=== PATIENT | male | born 1980 ===

== ENCOUNTER 2022-12-13 18:31 | Inpatient (IN) | payer MEDICARE, MEDICAID, OTHER, SELFPAY ==
[2022-12-13 19:34] VITALS: BP 121/70; PULSE 102; RESP 22; TEMP 36.5; O2SAT 96
--- NOTE | 2022-12-13 19:38 | PC.ADMIT ---
Pt is a 42 y/o bulgarian speaking male admitted from [facility] at 1845 on a CV.Pts WBC was elevated and NA low, MD TO completed and pt approved for admission. Pt was cooperative with skin check, skin intact. Pt diagnosed with Schizoaffective d/o. Tox screen only positive for THC. VSS. Pts mood was tense, thought process was disorganized, speech tangential. Pt went to room to use the BR and didn't speak to T/W anymore. Next shift to complete admission.
[2022-12-13 22:32] LABS: Glucose, Whole Blood 261 mg/dL (60-115)
[2022-12-13] MEDS: Prazosin HCL 1 MG CAPSULE PO (23:00)
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
[2022-12-14 09:48] VITALS: BP 139/71; PULSE 90; RESP 16; TEMP 36.8; O2SAT 97
[2022-12-14] MEDS: SITagliptin Phosphate 25 MG TABLET PO (10:00)
[2022-12-14] MEDS: Atorvastatin Calcium 40 MG TABLET PO (10:00)
[2022-12-14] MEDS: Lithium Carbonate ER 450 MG TABLET.ER PO (10:01)
[2022-12-14] MEDS: lisinopriL 10 MG TABLET PO (10:01)
[2022-12-14] MEDS: Benztropine Mesylate 1 MG TABLET PO (10:01)
[2022-12-14 10:36] LABS: Lithium 0.53 mmol/L (0.60-1.20)
[2022-12-14 10:43] LABS: Estimated Average Glucose 157 mg/dL; Hemoglobin A1c % 7.1 % (<6.0)
[2022-12-14 10:57] LABS: Alanine Aminotransferase 18 U/L (0-40); Albumin Level 4.6 g/dL (3.5-5.0); Alkaline Phosphatase 86 U/L (39-117); Anion Gap 14 (12-20); Aspartate Amino Transferase 12 U/L (5-37); Bilirubin Total 0.5 mg/dL (0.0-1.0); Blood Urea Nitrogen 13 mg/dL (9-16); Calcium 9.4 mg/dL (8.4-10.2); Carbon Dioxide 22 mmol/L (22-29); Chloride 104 mmol/L (96-108); Cholesterol 146 mg/dL (<200); Estimated Glomerular Filt Rate > 60; Glucose Fasting 263 mg/dL (60-99); HDL Cholesterol 32 mg/dL (>40); Potassium 4.6 mmol/L (3.3-5.1); Sodium 135 mmol/L (135-145); Total Protein 7.1 g/dL (6.5-8.0); Triglycerides 423 mg/dL (<150)
[2022-12-14 11:14] LABS: Free T4 (Free Thyroxine) 1.05 ng/dL (0.71-1.85); Thyroid Stimulating Hormone 1.23 uIU/mL (0.32-4.0)
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
[2022-12-14 11:17] LABS: Folate 9.9 ng/mL (> or = 4.0); Vitamin B12 546 pg/mL (200-900)
[2022-12-14 12:46] LABS: Glucose, Whole Blood 175 mg/dL (60-115)
[2022-12-14] MEDS: chlorproMAZINE HCl 25 MG TABLET 50 MG PO ×2 (16:54→21:44)
[2022-12-14 20:15] VITALS: BP 124/85; PULSE 100; RESP 18; TEMP 37; O2SAT 97
[2022-12-14] MEDS: Lithium Carbonate ER 450 MG TABLET.ER 900 MG PO (21:44)
[2022-12-14] MEDS: LORazepam 1 MG TABLET PO (21:44)
[2022-12-14] MEDS: Prazosin HCL 1 MG CAPSULE PO (21:45)
[2022-12-15 08:00] VITALS: BP 146/78; PULSE 83; RESP 18; TEMP 36.2; O2SAT 98
[2022-12-15] MEDS: Benztropine Mesylate 1 MG TABLET PO (08:50)
[2022-12-15] MEDS: Lithium Carbonate ER 300 MG TABLET.ER 600 MG PO (08:50)
[2022-12-15] MEDS: lisinopriL 10 MG TABLET PO (08:50)
[2022-12-15] MEDS: Atorvastatin Calcium 40 MG TABLET PO (08:51)
[2022-12-15] MEDS: chlorproMAZINE HCl 25 MG TABLET 50 MG PO ×3 (08:51→21:13)
[2022-12-15] MEDS: SITagliptin Phosphate 25 MG TABLET PO (08:51)
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
[2022-12-15 10:44] LABS: Glucose, Whole Blood 302 mg/dL (60-115)
[2022-12-15] MEDS: Lithium Carbonate ER 450 MG TABLET.ER 900 MG PO (21:13)
[2022-12-16] MEDS: Milk of Magnesia 30 ML ORAL.SUSP PO (02:08)
[2022-12-16] MEDS: LORazepam 1 MG TABLET PO ×2 (02:08→22:30)
[2022-12-16 08:33] LABS: Glucose, Whole Blood 223 mg/dL (60-115)
[2022-12-16] MEDS: Lithium Carbonate ER 300 MG TABLET.ER 600 MG PO (08:41)
[2022-12-16] MEDS: SITagliptin Phosphate 25 MG TABLET PO (08:41)
[2022-12-16] MEDS: Atorvastatin Calcium 40 MG TABLET PO (08:41)
[2022-12-16] MEDS: chlorproMAZINE HCl 25 MG TABLET 50 MG PO (08:41)
[2022-12-16] MEDS: lisinopriL 10 MG TABLET PO (08:42)
[2022-12-16] MEDS: Benztropine Mesylate 1 MG TABLET PO (08:42)
--- NOTE | 2022-12-16 08:55 | P.PNPSI_ITS ---
Subjective Subjective Date of Service: 12/16/22 Reason For Visit: Schizoaffective D/O Bipolar Subjective Notes: Conditional Voluntary Interim History: Reviewed in team and . Pt continues to presents with rapid and pressured speech. It is difficult to understand or follow along with patients speech and thought process. He presents disorganized, tangential, delusional and incoherent; pt observed responding to internal stimuli; when asked who he is talking to pt stated it was his , Gavino. He reports his , Gavino, is now here and Gisell-I has gone, since she is a part of [employer] . Patient reports he had a premonition that I was going to today but I'm glad I haven't . Denies SI/HI. Medication Compliance: Yes Side effects from medications: No Attending Groups: Intermittent Review of Systems Review of Systems Patient has no acute medical complaints at this time Yes all other systems are reviewed and are negative Constitutional: Reports as per HPI Eyes: Reports as per HPI Reports as per HPI Cardiovascular: Reports as per HPI Respiratory: Reports as per HPI Gastrointestinal: Reports as per HPI Genitourinary: Reports as per HPI Musculoskeletal: Reports as per HPI Skin/Breast: Reports as per HPI Reports as per HPI Psychiatric: Reports as per HPI Endocrine: Reports as per HPI Hematologic/Lymphatic: Reports as per HPI Allergic/Immunologic: Reports as per HPI Mental Status Exam Mental Status Exam Narrative: Pt is alert and oriented; behavior is cooperative, calm; dressed in casual attire with unkempt hair and poor hygiene; mood is described as fine ; eye contact appropriate; Speech is rapid and pressured; no psychomotor agitation/retardation present; thought process is racing; Thought content is disorganized, tangential, incoherent; pt presents with delusions that he is to 4 different women and 2 men; has cameras in his occipital nerve; denies SI/HI. Reacting to visual/auditory hallucinations. Patients insight and judgment are poor. Diagnostics Labs 12/14/22 09:48 Labs: Laboratory Results - last 48 hr 12/14/22 12/14/22 12/15/22 09:48 12:41 10:40 Sodium 135 Potassium 4.6 Chloride 104 Carbon Dioxide 22 Anion Gap 14 BUN 13 Creatinine 0.80 Estim Creat Clear Calc TNP Estimated GFR > 60 POC Glucose 175 H 302 H Fasting Glucose 263 H Estimat Average Glucose 157 Hemoglobin A1c % 7.1 H Calcium 9.4 Total Bilirubin 0.5 AST 12 ALT 18 Alkaline Phosphatase 86 Total Protein 7.1 Albumin 4.6 Triglycerides 423 H Cholesterol 146 LDL Cholesterol, Calc TNP HDL Cholesterol 32 L Vitamin B12 546 Folate 9.9 TSH 1.23 Free T4 1.05 Valinda 0.53 L 12/16/22 08:16 Sodium Potassium Chloride Carbon Dioxide Anion Gap BUN Creatinine Estim Creat Clear Calc Estimated GFR POC Glucose 223 H Fasting Glucose Estimat Average Glucose Hemoglobin A1c % Calcium Total Bilirubin AST ALT Alkaline Phosphatase Total Protein Albumin Triglycerides Cholesterol LDL Cholesterol, Calc HDL Cholesterol Vitamin B12 Folate TSH Free T4 Valinda Medications Medications Current Medications Acetaminophen (Acetaminophen 325 Mg Tablet) 650 mg PO Q6H PRN PRN Reason: Headache/Pain Mild Scale (1-3) Al Hydroxide/Mg Hydroxide (Magnesium Hydrox/Alum Hydrox 30 Ml Oral.Susp) 30 ml PO Q6H PRN PRN Reason: Heartburn/Nausea Atorvastatin Calcium (Atorvastatin Calcium 40 Mg Tablet) 40 mg PO DAILY [facility] Last Admin: 12/16/22 08:41 Dose: 40 mg Benztropine Mesylate (Benztropine Mesylate 1 Mg Tablet) 1 mg PO DAILY [facility] Last Admin: 12/16/22 08:42 Dose: 1 mg Chlorpromazine HCl (Chlorpromazine Hcl 25 Mg Tablet) 50 mg PO TID [facility] Last Admin: 12/16/22 08:41 Dose: 50 mg Lisinopril (Lisinopril 10 Mg Tablet) 10 mg PO DAILY [facility]; Protocol Last Admin: 12/16/22 08:42 Dose: 10 mg Valinda Carbonate (Valinda Carbonate Er 300 Mg Tablet.Er) 600 mg PO DAILY [facility] Last Admin: 12/16/22 08:41 Dose: 600 mg Valinda Carbonate (Valinda Carbonate Er 450 Mg Tablet.Er) 900 mg PO BEDTIME [facility] Last Admin: 12/15/22 21:13 Dose: 900 mg Lorazepam (Lorazepam 1 Mg Tablet) 1 mg PO DAILY PRN PRN Reason: anxiety/restlessness Last Admin: 12/16/22 02:08 Dose: 1 mg Lorazepam (Lorazepam 1 Mg Tablet) 1 mg PO BEDTIME [facility] Last Admin: 12/15/22 21:15 Dose: Not Given Magnesium Hydroxide (Milk Of Magnesia 30 Ml Oral.Susp) 30 ml PO DAILY PRN PRN Reason: Constipation Last Admin: 12/16/22 02:08 Dose: 30 ml Nicotine Polacrilex (Nicotine Polacrilex 2 Mg Gum) 4 mg BUCCAL Q2H PRN PRN Reason: Nicotine Cravings Olanzapine (Olanzapine 5 Mg Tablet) 5 mg PO BID PRN PRN Reason: Psychosis Prazosin HCl (Prazosin Hcl 1 Mg Capsule) 1 mg PO BEDTIME [facility]; Protocol Last Admin: 12/14/22 21:45 Dose: 1 mg Sitagliptin Phosphate (Sitagliptin Phosphate 25 Mg Tablet) 25 mg PO DAILY [facility] Last Admin: 12/16/22 08:41 Dose: 25 mg Trazodone HCl (Trazodone Hcl 50 Mg Tablet) 50 mg PO BEDTIME MRX1 PRN PRN Reason: Insomnia Allergies Allergies Allergy/AdvReac Type Severity Reaction Status Date / Time haloperidol [From Haldol] AdvReac Severe Irritable Verified 12/13/22 21:04 Assessment & Plan Assessment & Plan (1) Schizoaffective disorder: Status: Acute Code(s): F25.9 - Schizoaffective disorder, unspecified Plan Patient is a 42 year old male who self presented to [facility] d/t stating, his girlfriend wanting him to be evaluated , girlfriend does not physically exist; rather a perception of his reality. Per crisis report, Pt exhibiting acute psychotic behavior, reacting to visual stimuli. Pt accused clinician of sitting on his girlfriend during evaluation. Plan: 15 minute safety checks Continue home medications Obtain collateral Zyprexa 5mg PO BID PRN psychosis Ativan 1mg PO bedtime Ativan 1mg PO daily prn anxiety 12/15: Pt continues to presents with rapid and pressured speech. It is difficult to understand or follow along with patients speech and thought process. He presents disorganized, tangential, delusional and incoherent; pt stated, my is waiting for me in my room while I meet with you ; starting to name all of his wives and husbands names, reports he plans on possibly having a baby with one of his husbands. Patient asked to retract 3 day notice because he feel we are skilled to handle ill people . Continue current tx plan. Labs to be drawn on Monday12/19/22. 12/16: pt observed responding to internal stimuli; when asked who he is talking to pt stated it was his , Ryn. He reports his , Ryn, is now here and Gisell-I has gone, since she is a part of [employer] . Patient reports he had a premonition that I was going to today but I'm glad I haven't . Denies SI/HI. Increased Thorazine to 100mg PO 0900,1700 and 200mg PO bedtime; pt aware. Patient educated on: diagnosis and medication risk/benefits Informed Consent: understands and further education needed Reason for continued inpatient stay Substantial Risk for: med/psych decompensation Time Spent With Patient Time: Total time managing care of this patient today _30___ minutes.
[2022-12-16 09:00] VITALS: BP 134/78; PULSE 91; RESP 18; TEMP 36.8; O2SAT 97
[2022-12-16] MEDS: fluPHENAZine decanoate 25 MG/ML 5 ML VIAL 37.5 MG IM (16:52)
[2022-12-16] MEDS: metFORMIN HCl 1,000 MG TABLET 1000 MG PO (17:01)
[2022-12-16] MEDS: chlorproMAZINE HCl 100 MG TABLET PO (17:01)
[2022-12-16] MEDS: chlorproMAZINE HCl 100 MG TABLET 200 MG PO (22:31)
[2022-12-16] MEDS: Lithium Carbonate ER 450 MG TABLET.ER 900 MG PO (22:31)
[2022-12-16] MEDS: Prazosin HCL 1 MG CAPSULE PO (22:31)
[2022-12-17 07:50] VITALS: BP 133/80; PULSE 102; RESP 18; TEMP 36.4; O2SAT 97
[2022-12-17] MEDS: SITagliptin Phosphate 25 MG TABLET PO (07:57)
[2022-12-17] MEDS: Atorvastatin Calcium 40 MG TABLET PO (07:57)
[2022-12-17] MEDS: Lithium Carbonate ER 300 MG TABLET.ER 600 MG PO (07:57)
[2022-12-17] MEDS: lisinopriL 10 MG TABLET PO (07:57)
[2022-12-17] MEDS: Benztropine Mesylate 1 MG TABLET PO (07:58)
[2022-12-17] MEDS: chlorproMAZINE HCl 100 MG TABLET PO (07:58)
[2022-12-17] MEDS: metFORMIN HCl 1,000 MG TABLET 1000 MG PO ×2 (07:58→17:02)
[2022-12-17] MEDS: glipiZIDE 10 MG TABLET PO (07:58)
[2022-12-17 08:36] LABS: Glucose, Whole Blood 266 mg/dL (60-115)
[2022-12-17] MEDS: LORazepam 1 MG TABLET PO ×2 (11:19→14:06)
--- NOTE | 2022-12-17 13:27 | PC.NURSE ---
Pt nonsensical, restless, intrusive with roommate, running/speed walking in the hallway, in various stages of disrobing in room with roommate present. Given ativan 1 MG PO PRN (see MAR), with some effect. Discussed pt's presentation with Dr. Eaton and anmol COOPER. No private rooms available at this time, and was temporally moved to the anteroom until a private room is available. Pt was accepting of room change, and assisted staff in moving his belongings without issue. Placed on 5 minute checks ULB due to ligature risk on bed. Pt educated on and acknowledged importance of shutting door to the hallway when exiting room. Will continue to monitor for safety.
--- NOTE | 2022-12-17 13:42 | PC.NURSE ---
Pt nonsensical, restless, intrusive with roommate, running/speed walking in the hallway, in various stages of disrobing in room with roommate present. Given ativan 1 MG PO PRN (see MAR), with some effect. Discussed pt's presentation with Dr. Eaton and chargemaster analyst. No private rooms available at this time, and was temporarily moved to the anteroom until a private room is available. Pt was accepting of room change, and assisted staff in moving his belongings without issue. Placed on 5 minute checks ULB due to ligature risk on bed. Pt educated on and acknowledged importance of shutting door to the hallway when exiting room. Will continue to monitor for safety.
[2022-12-17] MEDS: chlorproMAZINE HCl 100 MG TABLET 200 MG PO ×2 (14:07→20:51)
--- NOTE | 2022-12-17 15:33 | P.PNPSI_ITS ---
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 During that admission he had changed his name legally to Rfa Machado. From 07/27/2018 discharge evaluation: - HPI: I'm constantly under attack for my beliefs and values . Reports that he called an ambulance, felt he couldn't drive in the snow. Describes himself as frantic and driving from place to place. Reports that he has been sleeping poorly. Says he was talking to the ghost in the ceiling . States that the ghost was performing surgery on his occipital lobe. Because of this he has better neuro-plasticity Says that he founded a country, called [employer]. Expressing multiple delusions about his .... was on thorazine, tegretol and lithium pre admission... lived in [facility] course and discharge: He was floridly psychotic and often non compliant with medications. There were three episodes of needing restraint due to aggressive behavior. He was intrusive and often disrobing in the hallway. He was placed on 1:1 observation due to these behaviors. A petition for commitment was filed and a hearing was held. The commitment and [place] order were allowed. His medication was changed to a combination of olanzapine and haloperidol. Medill and tegretol were discontinued and he was started on depakote. He had additional medication added for anxiety and to promote sleep including valium.. He continued to be awake much of the night. Over the next several days he did become somewhat calmer and was having more sleep time though still not sleeping adequately. He was less irritable though still displaying psychotic behavior including delusional and disorganized thinking. He was interacting more appropriately with staff and peers and hence 1:1 observation was removed during the day time and continued at night. 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 Patient eventually responded to lithium, Valium, prazosin, Abilify, Haldol and Zyprexa. Abilify maintaina started on 07/27/2018, oral Abilify will discontinue on 08/01/2018 and next dose of Abilify Maintena is 08/26/2018. Thought process became normal. No evidence of psychosis. Able to engage well attend to ADLs. Family support also present. Liaised with [facility] 3 team who will provide discharge follow-up. Eventually Haldol and Zyprexa can be tapered to monotherapy. Valium should also be tapered gradually. Was sleeping throughout the night ? Discussed discharge planning on 07/26/2018- will go home with family (Thursday 07/27), stay with the for the weekend, then go to apartment Monday with PA[facility] team. Discharge Examination: Alert, coherent and pleasant. No psychosis. Affect euthymic. No SI or HI. Good insight. Discharge meds included abilify maintenna 400mg, valium 10mg bedtime, haldol 5mg am and 10mg hs, lithium 600mg bid and prazosin 2mg hs. Today: Remembered teletypewriter operator from hospitalization at [facility] in 2019. Presents as pressured, intrusive, floridly psychotic, some irritability. Has been taking medications including Prolixin Decanoate, olanzapine and Thorazine. Was speaking about changing his name to evade police. Reported [address] in himself for tobacco addiction. Still living in [place] in an apartment nearby his family. Reports that his and family are invisible. I did discuss current medication regimen and increasing Thorazine and Ativan throughout today, which he was agreeable to. Was aware and in agreement with teletypewriter operator reviewing records from his admission at [facility]. Medication Compliance: Yes Side effects from medications: No Attending Groups: No Review of Systems Acute medical concerns: No Review of Systems Review of Systems Unremarkable Mental Status Exam Mental Status Exam Narrative: pleasant. Casually dressed. Self-care is limited. Pressured speech and intrusive. Denies feeling depressed. No SI or HI. Multiple delusions that are bizarre in nature. Insight and judgment does appear limited Diagnostics Vital Signs (24Hr): Vital Signs - 24 hr 12/17/22 07:50 Temperature 97.5 F Pulse Rate 102 H Respiratory Rate 18 Blood Pressure 133/80 Pulse Oximetry 97 Oxygen Delivery Method Room Air Labs 12/14/22 09:48 Labs: Laboratory Results - last 48 hr 12/16/22 12/17/22 08:16 08:18 POC Glucose 223 H 266 H Medications Medications Current Medications Acetaminophen (Acetaminophen 325 Mg Tablet) 650 mg PO Q6H PRN PRN Reason: Headache/Pain Mild Scale (1-3) Al Hydroxide/Mg Hydroxide (Magnesium Hydrox/Alum Hydrox 30 Ml Oral.Susp) 30 ml PO Q6H PRN PRN Reason: Heartburn/Nausea Atorvastatin Calcium (Atorvastatin Calcium 40 Mg Tablet) 40 mg PO DAILY [facility] Last Admin: 12/17/22 07:57 Dose: 40 mg Benztropine Mesylate (Benztropine Mesylate 1 Mg Tablet) 1 mg PO DAILY [facility] Last Admin: 12/17/22 07:58 Dose: 1 mg Chlorpromazine HCl (Chlorpromazine Hcl 100 Mg Tablet) 200 mg PO BEDTIME [facility] Last Admin: 12/16/22 22:31 Dose: 200 mg Chlorpromazine HCl (Chlorpromazine Hcl 100 Mg Tablet) 200 mg PO BID@0900,1700 [facility] Last Admin: 12/17/22 14:07 Dose: 200 mg Glipizide (Glipizide 10 Mg Tablet) 10 mg PO DAILY [facility] Last Admin: 12/17/22 07:58 Dose: 10 mg Lisinopril (Lisinopril 10 Mg Tablet) 10 mg PO DAILY [facility]; Protocol Last Admin: 12/17/22 07:57 Dose: 10 mg Medill Carbonate (Medill Carbonate Er 300 Mg Tablet.Er) 600 mg PO DAILY [facility] Last Admin: 12/17/22 07:57 Dose: 600 mg Medill Carbonate (Medill Carbonate Er 450 Mg Tablet.Er) 900 mg PO BEDTIME [facility] Last Admin: 12/16/22 22:31 Dose: 900 mg Lorazepam (Lorazepam 1 Mg Tablet) 1 mg PO BID@0900,1400 [facility] Last Admin: 12/17/22 14:11 Dose: Not Given Lorazepam (Lorazepam 1 Mg Tablet) 1 mg PO DAILY PRN PRN Reason: anxiety/restlessness Lorazepam (Lorazepam 1 Mg Tablet) 2 mg PO BEDTIME [facility] Magnesium Hydroxide (Milk Of Magnesia 30 Ml Oral.Susp) 30 ml PO DAILY PRN PRN Reason: Constipation Last Admin: 12/16/22 02:08 Dose: 30 ml Metformin HCl (Metformin Hcl 1,000 Mg Tablet) 1,000 mg PO BIDWM [facility] Last Admin: 12/17/22 07:58 Dose: 1,000 mg Nicotine Polacrilex (Nicotine Polacrilex 2 Mg Gum) 4 mg BUCCAL Q2H PRN PRN Reason: Nicotine Cravings Prazosin HCl (Prazosin Hcl 1 Mg Capsule) 1 mg PO BEDTIME [facility]; Protocol Last Admin: 12/16/22 22:31 Dose: 1 mg Sitagliptin Phosphate (Sitagliptin Phosphate 25 Mg Tablet) 25 mg PO DAILY [facility] Last Admin: 12/17/22 07:57 Dose: 25 mg Trazodone HCl (Trazodone Hcl 50 Mg Tablet) 50 mg PO BEDTIME MRX1 PRN PRN Reason: Insomnia Allergies Allergies Allergy/AdvReac Type Severity Reaction Status Date / Time haloperidol [From Haldol] AdvReac Severe Irritable Verified 12/13/22 21:04 Assessment & Plan Assessment & Plan (1) Schizoaffective disorder: Status: Acute Code(s): F25.9 - Schizoaffective disorder, unspecified Plan Patient is a 42 year old male who self presented to [facility] d/t stating, his girlfriend wanting him to be evaluated , girlfriend does not physically exist; rather a perception of his reality. Per crisis report, Pt exhibiting acute psychotic behavior, reacting to visual stimuli. Pt accused clinician of sitting on his girlfriend during evaluation. Plan: 15 minute safety checks Continue home medications Obtain collateral Zyprexa 5mg PO BID PRN psychosis Ativan 1mg PO bedtime Ativan 1mg PO daily prn anxiety 12/15: Pt continues to presents with rapid and pressured speech. It is difficult to understand or follow along with patients speech and thought process. He presents disorganized, tangential, delusional and incoherent; pt stated, my is waiting for me in my room while I meet with you ; starting to name all of his wives and husbands names, reports he plans on possibly having a baby with one of his husbands. Patient asked to retract 3 day notice because he feel we are skilled to handle ill people . Continue current tx plan. Labs to be drawn on Monday12/19/22. 12/16: pt observed responding to internal stimuli; when asked who he is talking to pt stated it was his , Ryn. He reports his , Gavino, is now here and Gisell-I has gone, since she is a part of [employer] . Patient reports he had a premonition that I was going to today but I'm glad I haven't . Denies SI/HI. Increased Thorazine to 100mg PO 0900,1700 and 200mg PO bedtime; pt aware. 12/17/2022: Will increase Thorazine to 200 mg 3 times per day and Ativan 1 mg twice daily and 2 mg at bedtime. Will also increase prazosin to 2 mg as previously did well with that dose in the past. Reason for continued inpatient stay Substantial Risk for: inability to function Time Spent With Patient Time: Total time managing care of this patient today ____ minutes.
--- NOTE | 2022-12-17 17:10 | PC.NURSE ---
Pt refused 1700 dose of thorazine 200 MG, no that's too much, I just took it. he said it would be a much looser schedule. I'm only taking it 3 times a day, I'll take it at bedtime . Pt had previously taken a first dose at 1600, and received 100 MG this morning.
[2022-12-17 19:50] VITALS: BP 128/63; PULSE 109; RESP 16; TEMP 36.1; O2SAT 97
[2022-12-17] MEDS: Prazosin HCL 1 MG CAPSULE 2 MG PO (20:50)
[2022-12-17] MEDS: Lithium Carbonate ER 450 MG TABLET.ER 900 MG PO (20:51)
[2022-12-17] MEDS: LORazepam 1 MG TABLET 2 MG PO (20:52)
[2022-12-18 07:57] VITALS: BP 115/69; PULSE 118; RESP 20; TEMP 36.3; O2SAT 96
[2022-12-18] MEDS: Milk of Magnesia 30 ML ORAL.SUSP PO (08:01)
[2022-12-18] MEDS: Lithium Carbonate ER 300 MG TABLET.ER 600 MG PO (08:01)
[2022-12-18] MEDS: lisinopriL 10 MG TABLET PO (08:02)
[2022-12-18] MEDS: Atorvastatin Calcium 40 MG TABLET PO (08:02)
[2022-12-18] MEDS: metFORMIN HCl 1,000 MG TABLET 1000 MG PO ×2 (08:02→17:13)
[2022-12-18] MEDS: Benztropine Mesylate 1 MG TABLET PO (08:03)
[2022-12-18] MEDS: chlorproMAZINE HCl 100 MG TABLET 200 MG PO ×2 (08:03→22:08)
[2022-12-18] MEDS: SITagliptin Phosphate 25 MG TABLET PO (08:03)
[2022-12-18] MEDS: LORazepam 1 MG TABLET PO ×2 (08:03→14:15)
[2022-12-18] MEDS: glipiZIDE 10 MG TABLET PO (08:03)
[2022-12-18 08:26] LABS: Glucose, Whole Blood 321 mg/dL (60-115)
--- NOTE | 2022-12-18 15:57 | HO.PSYCHPN ---
Subjective Subjective Date of Service: 12/18/22 Reason For Visit: Schizoaffective D/O Bipolar Subjective Notes: 3 Day Interim History: has been intrusive and upsetting other patients. declined 17:00 dose of Thorazine yesterday. Moved to a separate room to minimize stimulation. One verbal outburst. Making bizarre statements such as his is jealous because his daughter is sexy. 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 Regarding current regimen, agree to increase Thorazine but preferred afternoon dose being 100 mg, rather than 200 mg ie total daily dose will be 500 mg. Medication Compliance: Intermittent Side effects from medications: No Attending Groups: Intermittent Review of Systems Review of Systems Unremarkable Mental Status Exam Mental Status Exam Narrative: pleasant. Casually dressed. Self-care is limited. Pressured speech and intrusive. Denies feeling depressed. No SI or HI. Multiple delusions that are bizarre in nature. Insight and judgment does appear limited Diagnostics Vital Signs (24Hr): Vital Signs - 24 hr 12/17/22 19:50 12/18/22 07:57 Temperature 97 F 97.3 F Pulse Rate 109 H 118 H Respiratory Rate 16 20 Blood Pressure 128/63 115/69 Pulse Oximetry 97 96 Oxygen Delivery Method Room Air Room Air Labs 12/14/22 09:48 Labs: Laboratory Results - last 48 hr 12/17/22 12/18/22 08:18 07:56 POC Glucose 266 H 321 H Medications Medications Current Medications Acetaminophen (Acetaminophen 325 Mg Tablet) 650 mg PO Q6H PRN PRN Reason: Headache/Pain Mild Scale (1-3) Al Hydroxide/Mg Hydroxide (Magnesium Hydrox/Alum Hydrox 30 Ml Oral.Susp) 30 ml PO Q6H PRN PRN Reason: Heartburn/Nausea Atorvastatin Calcium (Atorvastatin Calcium 40 Mg Tablet) 40 mg PO DAILY [facility] Last Admin: 12/18/22 08:02 Dose: 40 mg Benztropine Mesylate (Benztropine Mesylate 1 Mg Tablet) 1 mg PO DAILY [facility] Last Admin: 12/18/22 08:03 Dose: 1 mg Chlorpromazine HCl (Chlorpromazine Hcl 100 Mg Tablet) 200 mg PO BEDTIME [facility] Last Admin: 12/17/22 20:51 Dose: 200 mg Chlorpromazine HCl (Chlorpromazine Hcl 100 Mg Tablet) 200 mg PO DAILY [facility] Chlorpromazine HCl (Chlorpromazine Hcl 100 Mg Tablet) 100 mg PO DAILY@1700 [facility] Glipizide (Glipizide 10 Mg Tablet) 10 mg PO DAILY [facility] Last Admin: 12/18/22 08:03 Dose: 10 mg Lisinopril (Lisinopril 10 Mg Tablet) 10 mg PO DAILY [facility]; Protocol Last Admin: 12/18/22 08:02 Dose: 10 mg [place] Carbonate ([place] Carbonate Er 300 Mg Tablet.Er) 600 mg PO DAILY [facility] Last Admin: 12/18/22 08:01 Dose: 600 mg [place] Carbonate ([place] Carbonate Er 450 Mg Tablet.Er) 900 mg PO BEDTIME [facility] Last Admin: 12/17/22 20:51 Dose: 900 mg Lorazepam (Lorazepam 1 Mg Tablet) 1 mg PO BID@0900,1400 [facility] Last Admin: 12/18/22 14:15 Dose: 1 mg Lorazepam (Lorazepam 1 Mg Tablet) 1 mg PO DAILY PRN PRN Reason: anxiety/restlessness Lorazepam (Lorazepam 1 Mg Tablet) 2 mg PO BEDTIME [facility] Last Admin: 12/17/22 20:52 Dose: 2 mg Magnesium Hydroxide (Milk Of Magnesia 30 Ml Oral.Susp) 30 ml PO DAILY PRN PRN Reason: Constipation Last Admin: 12/18/22 08:01 Dose: 30 ml Metformin HCl (Metformin Hcl 1,000 Mg Tablet) 1,000 mg PO BIDWM [facility] Last Admin: 12/18/22 08:02 Dose: 1,000 mg Nicotine Polacrilex (Nicotine Polacrilex 2 Mg Gum) 4 mg BUCCAL Q2H PRN PRN Reason: Nicotine Cravings Prazosin HCl (Prazosin Hcl 1 Mg Capsule) 2 mg PO BEDTIME [facility]; Protocol Last Admin: 12/17/22 20:50 Dose: 2 mg Sitagliptin Phosphate (Sitagliptin Phosphate 25 Mg Tablet) 25 mg PO DAILY [facility] Last Admin: 12/18/22 08:03 Dose: 25 mg Trazodone HCl (Trazodone Hcl 50 Mg Tablet) 50 mg PO BEDTIME MRX1 PRN PRN Reason: Insomnia Allergies Allergies Allergy/AdvReac Type Severity Reaction Status Date / Time haloperidol [From Haldol] AdvReac Severe Irritable Verified 12/13/22 21:04 Assessment & Plan Assessment & Plan (1) Schizoaffective disorder: Status: Acute Code(s): F25.9 - Schizoaffective disorder, unspecified Plan Patient is a 42 year old male who self presented to [facility] d/t stating, his girlfriend wanting him to be evaluated , girlfriend does not physically exist; rather a perception of his reality. Per crisis report, Pt exhibiting acute psychotic behavior, reacting to visual stimuli. Pt accused clinician of sitting on his girlfriend during evaluation. Plan: 15 minute safety checks Continue home medications Obtain collateral Zyprexa 5mg PO BID PRN psychosis Ativan 1mg PO bedtime Ativan 1mg PO daily prn anxiety 12/15: Pt continues to presents with rapid and pressured speech. It is difficult to understand or follow along with patients speech and thought process. He presents disorganized, tangential, delusional and incoherent; pt stated, my is waiting for me in my room while I meet with you ; starting to name all of his wives and husbands names, reports he plans on possibly having a baby with one of his husbands. Patient asked to retract 3 day notice because he feel we are skilled to handle ill people . Continue current tx plan. Labs to be drawn on Monday12/19/22. 12/16: pt observed responding to internal stimuli; when asked who he is talking to pt stated it was his , Gavino. He reports his , Gavino, is now here and Gisell-I has gone, since she is a part of [employer] . Patient reports he had a premonition that I was going to today but I'm glad I haven't . Denies SI/HI. Increased Thorazine to 100mg PO 0900,1700 and 200mg PO bedtime; pt aware. 12/17/2022: Will increase Thorazine to 200 mg 3 times per day and Ativan 1 mg twice daily and 2 mg at bedtime. Will also increase prazosin to 2 mg as previously did well with that dose in the past. 12/18: adjust Thorazine to 200 mg morning and bedtime and 100 mg at dinnertime (pt agreed to take 100mg, rather than 200mg at that time) Reason for continued inpatient stay Substantial Risk for: inability to function and rapid decompensation Time Spent With Patient Time: Total time managing care of this patient today ____ minutes.
[2022-12-18] MEDS: chlorproMAZINE HCl 100 MG TABLET PO (17:13)
[2022-12-18] MEDS: LORazepam 1 MG TABLET 2 MG PO (22:07)
[2022-12-18] MEDS: Lithium Carbonate ER 450 MG TABLET.ER 900 MG PO (22:09)
[2022-12-18] MEDS: Prazosin HCL 1 MG CAPSULE 2 MG PO (22:09)
[2022-12-18 22:17] VITALS: BP 141/85; PULSE 105; TEMP 36.6; O2SAT 96
--- NOTE | 2022-12-18 22:18 | PC.NURSE ---
POC-refused HS POC
[2022-12-19 06:00] VITALS: BP 138/68; PULSE 97; RESP 18; TEMP 36; O2SAT 98
[2022-12-19] MEDS: chlorproMAZINE HCl 100 MG TABLET 200 MG PO (08:33)
[2022-12-19] MEDS: metFORMIN HCl 1,000 MG TABLET 1000 MG PO ×2 (08:34→17:05)
[2022-12-19] MEDS: Atorvastatin Calcium 40 MG TABLET PO (08:34)
[2022-12-19] MEDS: SITagliptin Phosphate 25 MG TABLET PO (08:34)
[2022-12-19] MEDS: Benztropine Mesylate 1 MG TABLET PO (08:34)
[2022-12-19] MEDS: Lithium Carbonate ER 300 MG TABLET.ER 600 MG PO (08:34)
[2022-12-19] MEDS: glipiZIDE 10 MG TABLET PO (08:35)
[2022-12-19] MEDS: LORazepam 1 MG TABLET PO ×3 (08:35→14:06)
[2022-12-19] MEDS: lisinopriL 10 MG TABLET PO (08:35)
[2022-12-19 08:57] LABS: Lithium 0.59 mmol/L (0.60-1.20)
[2022-12-19 09:11] LABS: Anion Gap 15 (12-20); Blood Urea Nitrogen 11 mg/dL (9-16); Carbon Dioxide 25 mmol/L (22-29); Chloride 103 mmol/L (96-108); Estimated Glomerular Filt Rate > 60; Potassium 4.5 mmol/L (3.3-5.1); Sodium 138 mmol/L (135-145)
[2022-12-19 09:27] LABS: TSH reflex Free T4 1.08 uIU/mL (0.32-4.0)
--- NOTE | 2022-12-19 09:34 | HO.PSYCHPN ---
Subjective Subjective Date of Service: 12/19/22 Reason For Visit: Schizoaffective D/O Bipolar Subjective Notes: Conditional Voluntary Interim History: Reviewed in team and . Pt continues to present with rapid, pressured speech, disorganized thought process and delusional thought content; He reports visual hallucinations of his wives . Pt stated, I know my wives are invisible and you can't see them . T/W met with pt's mother today during her visit; mother stated that patient has improved since admission but is not at baseline yet. She reports he is much more organized and presents with less rapid speech. T/W left for patients PACT 3 team to obtain collateral; waiting for call back. Medication Compliance: Yes Side effects from medications: No Attending Groups: No Review of Systems Constitutional: Reports as per HPI Eyes: Reports as per HPI Reports as per HPI Cardiovascular: Reports as per HPI Respiratory: Reports as per HPI Gastrointestinal: Reports as per HPI Genitourinary: Reports as per HPI Musculoskeletal: Reports as per HPI Skin/Breast: Reports as per HPI Reports as per HPI Psychiatric: Reports as per HPI Endocrine: Reports as per HPI Hematologic/Lymphatic: Reports as per HPI Allergic/Immunologic: Reports as per HPI Mental Status Exam Mental Status Exam Narrative: Pt is alert and oriented; behavior is cooperative, calm; dressed in casual attire with unkempt hair and poor hygiene; mood is described as fine ; eye contact appropriate; Speech is rapid and pressured; no psychomotor agitation/retardation present; thought process is racing; Thought content is disorganized, tangential, incoherent; pt presents with delusions; denies SI/HI. Reacting to visual/auditory hallucinations. Patients insight and judgment are poor. Diagnostics Vital Signs (24Hr): Vital Signs - 24 hr 12/18/22 22:17 12/19/22 06:00 Temperature 97.8 F 96.8 F Pulse Rate 105 H 97 Respiratory Rate 18 Blood Pressure 141/85 H 138/68 Pulse Oximetry 96 98 Oxygen Delivery Method Room Air Room Air Labs 12/19/22 07:31 Labs: Laboratory Results - last 48 hr 12/18/22 12/19/22 07:56 07:31 Sodium 138 Potassium 4.5 Chloride 103 Carbon Dioxide 25 Anion Gap 15 BUN 11 Creatinine 0.79 Estim Creat Clear Calc TNP Estimated GFR > 60 POC Glucose 321 H TSH 1.08 [place] 0.59 L Medications Medications Current Medications Acetaminophen (Acetaminophen 325 Mg Tablet) 650 mg PO Q6H PRN PRN Reason: Headache/Pain Mild Scale (1-3) Al Hydroxide/Mg Hydroxide (Magnesium Hydrox/Alum Hydrox 30 Ml Oral.Susp) 30 ml PO Q6H PRN PRN Reason: Heartburn/Nausea Atorvastatin Calcium (Atorvastatin Calcium 40 Mg Tablet) 40 mg PO DAILY [facility] Last Admin: 12/19/22 08:34 Dose: 40 mg Benztropine Mesylate (Benztropine Mesylate 1 Mg Tablet) 1 mg PO DAILY [facility] Last Admin: 12/19/22 08:34 Dose: 1 mg Chlorpromazine HCl (Chlorpromazine Hcl 100 Mg Tablet) 200 mg PO BEDTIME [facility] Last Admin: 12/18/22 22:08 Dose: 200 mg Chlorpromazine HCl (Chlorpromazine Hcl 100 Mg Tablet) 200 mg PO DAILY [facility] Last Admin: 12/19/22 08:33 Dose: 200 mg Chlorpromazine HCl (Chlorpromazine Hcl 100 Mg Tablet) 100 mg PO DAILY@1700 [facility] Last Admin: 12/18/22 17:13 Dose: 100 mg Glipizide (Glipizide 10 Mg Tablet) 10 mg PO DAILY [facility] Last Admin: 12/19/22 08:35 Dose: 10 mg Lisinopril (Lisinopril 10 Mg Tablet) 10 mg PO DAILY [facility]; Protocol Last Admin: 12/19/22 08:35 Dose: 10 mg [place] Carbonate ([place] Carbonate Er 300 Mg Tablet.Er) 600 mg PO DAILY [facility] Last Admin: 12/19/22 08:34 Dose: 600 mg [place] Carbonate ([place] Carbonate Er 450 Mg Tablet.Er) 900 mg PO BEDTIME [facility] Last Admin: 12/18/22 22:09 Dose: 900 mg Lorazepam (Lorazepam 1 Mg Tablet) 1 mg PO BID@0900,1400 [facility] Last Admin: 12/19/22 08:35 Dose: 1 mg Lorazepam (Lorazepam 1 Mg Tablet) 1 mg PO DAILY PRN PRN Reason: anxiety/restlessness Lorazepam (Lorazepam 1 Mg Tablet) 2 mg PO BEDTIME [facility] Last Admin: 12/18/22 22:07 Dose: 2 mg Magnesium Hydroxide (Milk Of Magnesia 30 Ml Oral.Susp) 30 ml PO DAILY PRN PRN Reason: Constipation Last Admin: 12/18/22 08:01 Dose: 30 ml Metformin HCl (Metformin Hcl 1,000 Mg Tablet) 1,000 mg PO BIDWM [facility] Last Admin: 12/19/22 08:34 Dose: 1,000 mg Nicotine Polacrilex (Nicotine Polacrilex 2 Mg Gum) 4 mg [place] Q2H PRN PRN Reason: Nicotine Cravings Prazosin HCl (Prazosin Hcl 1 Mg Capsule) 2 mg PO BEDTIME [facility]; Protocol Last Admin: 12/18/22 22:09 Dose: 2 mg Sitagliptin Phosphate (Sitagliptin Phosphate 25 Mg Tablet) 25 mg PO DAILY [facility] Last Admin: 12/19/22 08:34 Dose: 25 mg Trazodone HCl (Trazodone Hcl 50 Mg Tablet) 50 mg PO BEDTIME MRX1 PRN PRN Reason: Insomnia Allergies Allergies Allergy/AdvReac Type Severity Reaction Status Date / Time haloperidol [From Haldol] AdvReac Severe Irritable Verified 12/13/22 21:04 Assessment & Plan Assessment & Plan (1) Schizoaffective disorder: Status: Acute Code(s): F25.9 - Schizoaffective disorder, unspecified Plan Patient is a 42 year old male who self presented to [facility] d/t stating, his girlfriend wanting him to be evaluated , girlfriend does not physically exist; rather a perception of his reality. Per crisis report, Pt exhibiting acute psychotic behavior, reacting to visual stimuli. Pt accused clinician of sitting on his girlfriend during evaluation. Plan: 15 minute safety checks Continue home medications Obtain collateral Zyprexa 5mg PO BID PRN psychosis Ativan 1mg PO bedtime Ativan 1mg PO daily prn anxiety 12/15: Pt continues to presents with rapid and pressured speech. It is difficult to understand or follow along with patients speech and thought process. He presents disorganized, tangential, delusional and incoherent; pt stated, my is waiting for me in my room while I meet with you ; starting to name all of his wives and husbands names, reports he plans on possibly having a baby with one of his husbands. Patient asked to retract 3 day notice because he feel we are skilled to handle ill people . Continue current tx plan. Labs to be drawn on Monday12/19/22. 12/16: pt observed responding to internal stimuli; when asked who he is talking to pt stated it was his , Gavino. He reports his , Gavino, is now here and Gisell-I has gone, since she is a part of [employer] . Patient reports he had a premonition that I was going to today but I'm glad I haven't . Denies SI/HI. Increased Thorazine to 100mg PO 0900,1700 and 200mg PO bedtime; pt aware. 12/17: Will increase Thorazine to 200 mg 3 times per day and Ativan 1 mg twice daily and 2 mg at bedtime. Will also increase prazosin to 2 mg as previously did well with that dose in the past. 12/18: adjust Thorazine to 200 mg morning and bedtime and 100 mg at dinnertime (pt agreed to take 100mg, rather than 200mg at that time) 12/19: Pt continues to present with rapid, pressured speech, disorganized thought process and delusional thought content; He reports visual hallucinations of his wives . Pt stated, I know my wives are invisible and you can't see them . T/W met with pt's mother today during her visit; mother stated that patient has improved since admission but is not at baseline yet. She reports he is much more organized and presents with less rapid speech. T/W left for patients PACT 3 team to obtain collateral; waiting for call back. Thorazine dose changed to 100mg PO @ 1500 and 400mg PO bedtime. Patient educated on: medication risk/benefits Informed Consent: understands and further education needed Reason for continued inpatient stay Substantial Risk for: med/psych decompensation Time Spent With Patient Time: Total time managing care of this patient today _30___ minutes.
[2022-12-19] MEDS: chlorproMAZINE HCl 100 MG TABLET PO (14:06)
[2022-12-19 14:39] LABS: Specific Gravity - Urine <= 1.005 (1.005-1.025)
--- NOTE | 2022-12-19 15:50 | PC.NURSE ---
Patient came up to the nurses station and asked to speak with this RN. Stated, [This RN's Name], I don't belong here When this RN inquired as to what the patient means by this the patient responded, I thought that I was going to get help with my medical problems but I feel better and don't need the help I am getting and want to go . When this RN asked if the patient would like to sign a 3 day, the patient stated, I don't think that will help, I know that I can't defend myself in court. The way I talk will be used against me and I will lose. The patient then turned and calmly walked back to his room without further discussion.
[2022-12-19 20:00] VITALS: BP 128/67; PULSE 96; RESP 16; TEMP 36.3; O2SAT 98
[2022-12-19] MEDS: Lithium Carbonate ER 450 MG TABLET.ER 900 MG PO (22:11)
[2022-12-19] MEDS: LORazepam 1 MG TABLET 2 MG PO (22:11)
[2022-12-19] MEDS: Prazosin HCL 1 MG CAPSULE 2 MG PO (22:11)
[2022-12-20 08:00] VITALS: BP 135/65; PULSE 106; RESP 18; TEMP 36.1; O2SAT 98
[2022-12-20] MEDS: lisinopriL 10 MG TABLET PO (08:05)
[2022-12-20] MEDS: glipiZIDE 10 MG TABLET PO (08:05)
[2022-12-20] MEDS: Atorvastatin Calcium 40 MG TABLET PO (08:05)
[2022-12-20] MEDS: metFORMIN HCl 1,000 MG TABLET 1000 MG PO ×2 (08:05→17:05)
[2022-12-20] MEDS: LORazepam 1 MG TABLET PO ×2 (08:05→14:31)
[2022-12-20] MEDS: Lithium Carbonate ER 300 MG TABLET.ER 600 MG PO (08:05)
[2022-12-20] MEDS: SITagliptin Phosphate 25 MG TABLET PO (08:05)
[2022-12-20] MEDS: Benztropine Mesylate 1 MG TABLET PO ×2 (08:06→22:08)
[2022-12-20 08:40] LABS: Glucose, Whole Blood 366 mg/dL (60-115)
--- NOTE | 2022-12-20 09:32 | P.PNPSI_ITS ---
Subjective Subjective Date of Service: 12/20/22 Reason For Visit: Schizoaffective D/O Bipolar Subjective Notes: Conditional Voluntary Interim History: Reviewed in team and . Pt presents with less rapid, pressured speech;more organized thought process. Pt stated he feels my speech isn't as fast and my thoughts are not racing as much . He is requesting for Thorazine 500mg PO bed scheduled at bedtime rather than divided between the afternoon and evening. Patient spoke about his invisible family ; pt stated, I have a family who can only be seen by me. They are not a danger to anyone nor am I . T/W left VM for patients PACT 3 team to obtain collateral; waiting for call back. Medication Compliance: Yes Side effects from medications: No Attending Groups: No Review of Systems Review of Systems Unremarkable Yes all other systems are reviewed and are negative Constitutional: Reports as per HPI Eyes: Reports as per HPI Reports as per HPI Cardiovascular: Reports as per HPI Respiratory: Reports as per HPI Gastrointestinal: Reports as per HPI Genitourinary: Reports as per HPI Musculoskeletal: Reports as per HPI Skin/Breast: Reports as per HPI Reports as per HPI Psychiatric: Reports as per HPI Endocrine: Reports as per HPI Hematologic/Lymphatic: Reports as per HPI Allergic/Immunologic: Reports as per HPI Mental Status Exam Mental Status Exam Narrative: Pt is alert and oriented; behavior is cooperative, calm; dressed in casual attire with unkempt hair and poor hygiene; mood is described as fine ; eye contact appropriate; Speech is rapid and pressured; no psychomotor agitation/retardation present; thought process is racing; Thought content is more organized, tangential; pt presents with delusions; denies SI/HI. Reacting to visual/auditory hallucinations. Patients insight and judgment are poor but improving. Diagnostics Vital Signs (24Hr): Vital Signs - 24 hr 12/19/22 20:00 12/20/22 08:00 Temperature 97.3 F 97.0 F Pulse Rate 96 106 H Respiratory Rate 16 18 Blood Pressure 128/67 135/65 Pulse Oximetry 98 98 Oxygen Delivery Method Room Air Room Air Labs 12/19/22 07:31 Labs: Laboratory Results - last 48 hr 12/19/22 12/19/22 12/20/22 07:31 14:15 08:33 Sodium 138 Potassium 4.5 Chloride 103 Carbon Dioxide 25 Anion Gap 15 BUN 11 Creatinine 0.79 Estim Creat Clear Calc TNP Estimated GFR > 60 POC Glucose 366 H* TSH 1.08 Ur Specific [place] <= 1.005 Ur Random Sodium 57.0 [place] 0.59 L Medications Medications Current Medications Acetaminophen (Acetaminophen 325 Mg Tablet) 650 mg PO Q6H PRN PRN Reason: Headache/Pain Mild Scale (1-3) Al Hydroxide/Mg Hydroxide (Magnesium Hydrox/Alum Hydrox 30 Ml Oral.Susp) 30 ml PO Q6H PRN PRN Reason: Heartburn/Nausea Atorvastatin Calcium (Atorvastatin Calcium 40 Mg Tablet) 40 mg PO DAILY [facility] Last Admin: 12/20/22 08:05 Dose: 40 mg Benztropine Mesylate (Benztropine Mesylate 1 Mg Tablet) 1 mg PO BID [facility] Chlorpromazine HCl (Chlorpromazine Hcl 100 Mg Tablet) 400 mg PO BEDTIME [facility] Chlorpromazine HCl (Chlorpromazine Hcl 100 Mg Tablet) 100 mg PO DAILY@1500 [facility] Last Admin: 12/19/22 14:06 Dose: 100 mg Glipizide (Glipizide 10 Mg Tablet) 10 mg PO DAILY [facility] Last Admin: 12/20/22 08:05 Dose: 10 mg Lisinopril (Lisinopril 10 Mg Tablet) 10 mg PO DAILY [facility]; Protocol Last Admin: 12/20/22 08:05 Dose: 10 mg [place] Carbonate ([place] Carbonate Er 300 Mg Tablet.Er) 600 mg PO DAILY [facility] Last Admin: 12/20/22 08:05 Dose: 600 mg [place] Carbonate ([place] Carbonate Er 450 Mg Tablet.Er) 900 mg PO BEDTIME [facility] Last Admin: 12/19/22 22:11 Dose: 900 mg Lorazepam (Lorazepam 1 Mg Tablet) 1 mg PO BID@0900,1400 [facility] Last Admin: 12/20/22 08:05 Dose: 1 mg Lorazepam (Lorazepam 1 Mg Tablet) 1 mg PO DAILY PRN PRN Reason: anxiety/restlessness Last Admin: 12/19/22 09:45 Dose: 1 mg Lorazepam (Lorazepam 1 Mg Tablet) 2 mg PO BEDTIME [facility] Last Admin: 12/19/22 22:11 Dose: 2 mg Magnesium Hydroxide (Milk Of Magnesia 30 Ml Oral.Susp) 30 ml PO DAILY PRN PRN Reason: Constipation Last Admin: 12/18/22 08:01 Dose: 30 ml Metformin HCl (Metformin Hcl 1,000 Mg Tablet) 1,000 mg PO BIDWM [facility] Last Admin: 12/20/22 08:05 Dose: 1,000 mg Nicotine Polacrilex (Nicotine Polacrilex 2 Mg Gum) 4 mg BUCCAL Q2H PRN PRN Reason: Nicotine Cravings Prazosin HCl (Prazosin Hcl 1 Mg Capsule) 2 mg PO BEDTIME [facility]; Protocol Last Admin: 12/19/22 22:11 Dose: 2 mg Sitagliptin Phosphate (Sitagliptin Phosphate 25 Mg Tablet) 25 mg PO DAILY [facility] Last Admin: 12/20/22 08:05 Dose: 25 mg Trazodone HCl (Trazodone Hcl 50 Mg Tablet) 50 mg PO BEDTIME MRX1 PRN PRN Reason: Insomnia Allergies Allergies Allergy/AdvReac Type Severity Reaction Status Date / Time haloperidol [From Haldol] AdvReac Severe Irritable Verified 12/13/22 21:04 Assessment & Plan Assessment & Plan (1) Schizoaffective disorder: Status: Acute Code(s): F25.9 - Schizoaffective disorder, unspecified Plan Patient is a 42 year old male who self presented to [facility] d/t stating, his girlfriend wanting him to be evaluated , girlfriend does not physically exist; rather a perception of his reality. Per crisis report, Pt exhibiting acute psychotic behavior, reacting to visual stimuli. Pt accused clinician of sitting on his girlfriend during evaluation. Plan: 15 minute safety checks Continue home medications Obtain collateral 12/15: Pt continues to presents with rapid and pressured speech. It is difficult to understand or follow along with patients speech and thought process. He presents disorganized, tangential, delusional and incoherent; pt stated, my is waiting for me in my room while I meet with you ; starting to name all of his wives and husbands names, reports he plans on possibly having a baby with one of his husbands. Patient asked to retract 3 day notice because he feel we are skilled to handle ill people . Continue current tx plan. Labs to be drawn on Monday12/19/22. 12/16: pt observed responding to internal stimuli; when asked who he is talking to pt stated it was his , Gavino. He reports his , Gavino, is now here and Gisell-I has gone, since she is a part of [employer] . Patient reports he had a premonition that I was going to today but I'm glad I haven't . Denies SI/HI. Increased Thorazine to 100mg PO 0900,1700 and 200mg PO bedtime; pt aware. 12/17: Will increase Thorazine to 200 mg 3 times per day and Ativan 1 mg twice daily and 2 mg at bedtime. Will also increase prazosin to 2 mg as previously did well with that dose in the past. 12/18: adjust Thorazine to 200 mg morning and bedtime and 100 mg at dinnertime (pt agreed to take 100mg, rather than 200mg at that time) 12/19: Pt continues to present with rapid, pressured speech, disorganized thought process and delusional thought content; He reports visual hallucinations of his wives . Pt stated, I know my wives are invisible and you can't see them . T/W met with pt's mother today during her visit; mother stated that patient has improved since admission but is not at baseline yet. She reports he is much more organized and presents with less rapid speech. T/W left for patients PACT 3 team to obtain collateral; waiting for call back. Thorazine dose changed to 100mg PO @ 1500 and 400mg PO bedtime. 12/20: Pt presents with less rapid, pressured speech;more organized thought process. Pt stated he feels my speech isn't as fast and my thoughts are not racing as much . He is requesting for Thorazine 500mg PO bed scheduled at bedtime rather than divided between the afternoon and evening. Patient spoke about his invisible family ; pt stated, I have a family who can only be seen by me. They are not a danger to anyone nor am I . continue current tx plan. Patient educated on: diagnosis, medication risk/benefits and therapeutic strategies Informed Consent: understands and further education needed Reason for continued inpatient stay Substantial Risk for: med/psych decompensation Time Spent With Patient Time: Total time managing care of this patient today _30___ minutes.
[2022-12-20] MEDS: chlorproMAZINE HCl 100 MG TABLET PO (14:32)
[2022-12-20] MEDS: chlorproMAZINE HCl 100 MG TABLET 400 MG PO (22:05)
[2022-12-20] MEDS: Lithium Carbonate ER 450 MG TABLET.ER 900 MG PO (22:06)
[2022-12-20] MEDS: LORazepam 1 MG TABLET 2 MG PO (22:07)
[2022-12-20] MEDS: Prazosin HCL 1 MG CAPSULE 2 MG PO (22:08)
[2022-12-20 22:10] VITALS: BP 124/64; PULSE 85; RESP 16; TEMP 36.6; O2SAT 98
[2022-12-20 22:14] LABS: Glucose, Whole Blood 301 mg/dL (60-115)
[2022-12-21 06:00] VITALS: BP 130/62; PULSE 99; RESP 20; TEMP 36.8; O2SAT 97
[2022-12-21] MEDS: Benztropine Mesylate 1 MG TABLET PO ×2 (08:56→21:06)
[2022-12-21] MEDS: lisinopriL 10 MG TABLET PO (08:56)
[2022-12-21] MEDS: metFORMIN HCl 1,000 MG TABLET 1000 MG PO ×2 (08:56→17:20)
[2022-12-21] MEDS: SITagliptin Phosphate 25 MG TABLET PO (08:57)
[2022-12-21] MEDS: LORazepam 1 MG TABLET PO ×2 (08:57→14:19)
[2022-12-21] MEDS: glipiZIDE 10 MG TABLET PO (08:57)
[2022-12-21] MEDS: Lithium Carbonate ER 300 MG TABLET.ER 600 MG PO (08:57)
[2022-12-21] MEDS: Atorvastatin Calcium 40 MG TABLET PO (08:57)
--- NOTE | 2022-12-21 09:26 | HO.PSYCHPN ---
Subjective Subjective Date of Service: 12/21/22 Reason For Visit: Schizoaffective D/O Bipolar Subjective Notes: Conditional Voluntary Interim History: Reviewed in team and . Pt presents with less rapid, pressured speech;more organized thought process. Patient reports he is no longer having racing thoughts. He continues to talk about his invisible family; pt stated, I know it's odd to people that they can't see them ; patient has this delusion at baseline. T/W spoke with patient's mother, Margret Machado, who plans on talking with patient today and express if she feels patient is back to baseline. T/W left VM for patients PACT 3 team to obtain collateral; waiting for call back. Medication Compliance: Yes Side effects from medications: No Attending Groups: No Review of Systems Review of Systems Unremarkable Yes all other systems are reviewed and are negative Constitutional: Reports as per HPI Eyes: Reports as per HPI Reports as per HPI Cardiovascular: Reports as per HPI Respiratory: Reports as per HPI Gastrointestinal: Reports as per HPI Genitourinary: Reports as per HPI Musculoskeletal: Reports as per HPI Skin/Breast: Reports as per HPI Reports as per HPI Psychiatric: Reports as per HPI Endocrine: Reports as per HPI Hematologic/Lymphatic: Reports as per HPI Allergic/Immunologic: Reports as per HPI Mental Status Exam Mental Status Exam Narrative: Pt is alert and oriented; behavior is cooperative, calm; dressed in casual attire with unkempt hair and poor hygiene; mood is described as fine ; eye contact appropriate; Speech is rapid and pressured; no psychomotor agitation/retardation present; thought process is racing; Thought content is more organized, tangential; pt presents with delusions; denies SI/HI. Reacting to visual/auditory hallucinations. Patients insight and judgment are poor but improving. Diagnostics Vital Signs (24Hr): Vital Signs - 24 hr 12/20/22 22:10 12/21/22 06:00 Temperature 97.9 F 98.2 F Pulse Rate 85 99 Respiratory Rate 16 20 Blood Pressure 124/64 130/62 Pulse Oximetry 98 97 Oxygen Delivery Method Room Air Room Air Labs 12/19/22 07:31 Labs: Laboratory Results - last 48 hr 12/19/22 12/19/22 12/20/22 07:31 14:15 08:33 POC Glucose 366 H* TSH 1.08 Ur Specific [place] <= 1.005 Ur Random Sodium 57.0 12/20/22 22:04 POC Glucose 301 H TSH Ur Specific [place] [place] Ur Random Sodium Medications Medications Current Medications Acetaminophen (Acetaminophen 325 Mg Tablet) 650 mg PO Q6H PRN PRN Reason: Headache/Pain Mild Scale (1-3) Al Hydroxide/Mg Hydroxide (Magnesium Hydrox/Alum Hydrox 30 Ml Oral.Susp) 30 ml PO Q6H PRN PRN Reason: Heartburn/Nausea Atorvastatin Calcium (Atorvastatin Calcium 40 Mg Tablet) 40 mg PO DAILY [facility] Last Admin: 12/21/22 08:57 Dose: 40 mg Benztropine Mesylate (Benztropine Mesylate 1 Mg Tablet) 1 mg PO BID [facility] Last Admin: 12/21/22 08:56 Dose: 1 mg Chlorpromazine HCl (Chlorpromazine Hcl 100 Mg Tablet) 500 mg PO BEDTIME [facility] Glipizide (Glipizide 10 Mg Tablet) 10 mg PO DAILY [facility] Last Admin: 12/21/22 08:57 Dose: 10 mg Lisinopril (Lisinopril 10 Mg Tablet) 10 mg PO DAILY [facility]; Protocol Last Admin: 12/21/22 08:56 Dose: 10 mg [place] Carbonate ([place] Carbonate Er 300 Mg Tablet.Er) 600 mg PO DAILY [facility] Last Admin: 12/21/22 08:57 Dose: 600 mg [place] Carbonate ([place] Carbonate Er 450 Mg Tablet.Er) 900 mg PO BEDTIME [facility] Last Admin: 12/20/22 22:06 Dose: 900 mg Lorazepam (Lorazepam 1 Mg Tablet) 1 mg PO BID@0900,1400 [facility] Last Admin: 12/21/22 08:57 Dose: 1 mg Lorazepam (Lorazepam 1 Mg Tablet) 1 mg PO DAILY PRN PRN Reason: anxiety/restlessness Last Admin: 12/19/22 09:45 Dose: 1 mg Lorazepam (Lorazepam 1 Mg Tablet) 2 mg PO BEDTIME [facility] Last Admin: 12/20/22 22:07 Dose: 2 mg Magnesium Hydroxide (Milk Of Magnesia 30 Ml Oral.Susp) 30 ml PO DAILY PRN PRN Reason: Constipation Last Admin: 12/18/22 08:01 Dose: 30 ml Metformin HCl (Metformin Hcl 1,000 Mg Tablet) 1,000 mg PO BIDWM [facility] Last Admin: 12/21/22 08:56 Dose: 1,000 mg Nicotine Polacrilex (Nicotine Polacrilex 2 Mg Gum) 4 mg BUCCAL Q2H PRN PRN Reason: Nicotine Cravings Prazosin HCl (Prazosin Hcl 1 Mg Capsule) 2 mg PO BEDTIME [facility]; Protocol Last Admin: 12/20/22 22:08 Dose: 2 mg Sitagliptin Phosphate (Sitagliptin Phosphate 25 Mg Tablet) 25 mg PO DAILY [facility] Last Admin: 12/21/22 08:57 Dose: 25 mg Trazodone HCl (Trazodone Hcl 50 Mg Tablet) 50 mg PO BEDTIME MRX1 PRN PRN Reason: Insomnia Allergies Allergies Allergy/AdvReac Type Severity Reaction Status Date / Time haloperidol [From Haldol] AdvReac Severe Irritable Verified 12/13/22 21:04 Assessment & Plan Assessment & Plan (1) Schizoaffective disorder: Status: Acute Code(s): F25.9 - Schizoaffective disorder, unspecified Plan Patient is a 42 year old male who self presented to [facility] d/t stating, his girlfriend wanting him to be evaluated , girlfriend does not physically exist; rather a perception of his reality. Per crisis report, Pt exhibiting acute psychotic behavior, reacting to visual stimuli. Pt accused clinician of sitting on his girlfriend during evaluation. Plan: 15 minute safety checks Continue home medications Obtain collateral 12/15: Pt continues to presents with rapid and pressured speech. It is difficult to understand or follow along with patients speech and thought process. He presents disorganized, tangential, delusional and incoherent; pt stated, my is waiting for me in my room while I meet with you ; starting to name all of his wives and husbands names, reports he plans on possibly having a baby with one of his husbands. Patient asked to retract 3 day notice because he feel we are skilled to handle ill people . Continue current tx plan. Labs to be drawn on Monday12/19/22. 12/16: pt observed responding to internal stimuli; when asked who he is talking to pt stated it was his , Gavino. He reports his , Gavino, is now here and Gisell-I has gone, since she is a part of [employer] . Patient reports he had a premonition that I was going to today but I'm glad I haven't . Denies SI/HI. Increased Thorazine to 100mg PO 899,1700 and 200mg PO bedtime; pt aware. 12/17: Will increase Thorazine to 200 mg 3 times per day and Ativan 1 mg twice daily and 2 mg at bedtime. Will also increase prazosin to 2 mg as previously did well with that dose in the past. 12/18: adjust Thorazine to 200 mg morning and bedtime and 100 mg at dinnertime (pt agreed to take 100mg, rather than 200mg at that time) 12/19: Pt continues to present with rapid, pressured speech, disorganized thought process and delusional thought content; He reports visual hallucinations of his wives . Pt stated, I know my wives are invisible and you can't see them . T/W met with pt's mother today during her visit; mother stated that patient has improved since admission but is not at baseline yet. She reports he is much more organized and presents with less rapid speech. T/W left VM for patients PACT 3 team to obtain collateral; waiting for call back. Thorazine dose changed to 100mg PO @ 1500 and 400mg PO bedtime. 12/20: Pt presents with less rapid, pressured speech;more organized thought process. Pt stated he feels my speech isn't as fast and my thoughts are not racing as much . He is requesting for Thorazine 500mg PO bed scheduled at bedtime rather than divided between the afternoon and evening. Patient spoke about his invisible family ; pt stated, I have a family who can only be seen by me. They are not a danger to anyone nor am I . continue current tx plan. 12/21: Pt presents with less rapid, pressured speech;more organized thought process. Patient reports he is no longer having racing thoughts. He continues to talk about his invisible family; pt stated, I know it's odd to people that they can't see them ; patient has this delusion at baseline. T/W spoke with patient's mother, Margret Machado, who plans on talking with patient today and express if she feels patient is back to baseline. T/W left VM for patients PACT 3 team to obtain collateral; waiting for call back. Patient educated on: diagnosis, medication risk/benefits and therapeutic strategies Informed Consent: understands and further education needed Reason for continued inpatient stay Substantial Risk for: med/psych decompensation Time Spent With Patient Time: Total time managing care of this patient today _30___ minutes.
[2022-12-21 12:47] LABS: Glucose, Whole Blood 335 mg/dL (60-115)
[2022-12-21 21:00] VITALS: BP 119/56; PULSE 91; RESP 18; TEMP 36.4; O2SAT 96
[2022-12-21 21:00] LABS: Glucose, Whole Blood 375 mg/dL (60-115)
[2022-12-21] MEDS: Milk of Magnesia 30 ML ORAL.SUSP PO (21:02)
[2022-12-21] MEDS: chlorproMAZINE HCl 100 MG TABLET 500 MG PO (21:02)
[2022-12-21] MEDS: Lithium Carbonate ER 450 MG TABLET.ER 900 MG PO (21:04)
[2022-12-21] MEDS: Prazosin HCL 1 MG CAPSULE 2 MG PO (21:05)
[2022-12-21] MEDS: LORazepam 1 MG TABLET 2 MG PO (21:05)
[2022-12-22 09:25] VITALS: BP 129/63; PULSE 103; RESP 20; TEMP 36.2; O2SAT 97
[2022-12-22] MEDS: LORazepam 1 MG TABLET PO (09:35)
[2022-12-22] MEDS: Lithium Carbonate ER 300 MG TABLET.ER 600 MG PO (09:35)
[2022-12-22] MEDS: metFORMIN HCl 1,000 MG TABLET 1000 MG PO ×2 (09:35→17:24)
[2022-12-22] MEDS: lisinopriL 10 MG TABLET PO (09:35)
[2022-12-22] MEDS: Atorvastatin Calcium 40 MG TABLET PO (09:35)
[2022-12-22] MEDS: SITagliptin Phosphate 25 MG TABLET PO (09:35)
[2022-12-22] MEDS: Benztropine Mesylate 1 MG TABLET PO ×2 (09:35→20:49)
[2022-12-22] MEDS: glipiZIDE 10 MG TABLET PO (09:35)
--- NOTE | 2022-12-22 09:57 | HO.PSYCHPN ---
Subjective Subjective Date of Service: 12/22/22 Reason For Visit: Schizoaffective D/O Bipolar Subjective Notes: Conditional Voluntary Interim History: Reviewed in team and . Pt presents normal speech, no longer accelerated;organized thought process. Patient stated, I'd like to go home. I came in manic and upset but I'm better now . He continues to talk about his invisible family; patient has this delusion at baseline. Pt stated, outside of my invisible family, I don't have auditory or visual hallucinations . T/W spoke with patient's mother, Margret Machado, who believes patient has returned to baseline. Medication Compliance: Yes Side effects from medications: No Attending Groups: No Review of Systems Review of Systems Unremarkable Yes all other systems are reviewed and are negative Constitutional: Reports as per HPI Eyes: Reports as per HPI Reports as per HPI Cardiovascular: Reports as per HPI Respiratory: Reports as per HPI Gastrointestinal: Reports as per HPI Genitourinary: Reports as per HPI Musculoskeletal: Reports as per HPI Skin/Breast: Reports as per HPI Reports as per HPI Psychiatric: Reports as per HPI Endocrine: Reports as per HPI Hematologic/Lymphatic: Reports as per HPI Allergic/Immunologic: Reports as per HPI Mental Status Exam Mental Status Exam Narrative: Pt is alert and oriented; behavior is cooperative and calm; dressed in casual attire with unkempt hair and poor hygiene; mood is described as good ; eye contact appropriate; Speech is normal rate, volume and prosody and not pressured; no psychomotor agitation/retardation present; thought process is organized; Thought content is on discharge; continues to discuss invisible family , which is baseline for patient; denies SI/HI. Patients insight and judgment are fair. Diagnostics Vital Signs (24Hr): Vital Signs - 24 hr 12/21/22 21:00 Temperature 97.6 F Pulse Rate 91 Respiratory Rate 18 Blood Pressure 119/56 L Pulse Oximetry 96 Oxygen Delivery Method Room Air Labs 12/19/22 07:31 Labs: Laboratory Results - last 48 hr 12/20/22 12/21/22 12/21/22 22:04 12:41 20:56 POC Glucose 301 H 335 H 375 H* Medications Medications Current Medications Acetaminophen (Acetaminophen 325 Mg Tablet) 650 mg PO Q6H PRN PRN Reason: Headache/Pain Mild Scale (1-3) Al Hydroxide/Mg Hydroxide (Magnesium Hydrox/Alum Hydrox 30 Ml Oral.Susp) 30 ml PO Q6H PRN PRN Reason: Heartburn/Nausea Atorvastatin Calcium (Atorvastatin Calcium 40 Mg Tablet) 40 mg PO DAILY [facility] Last Admin: 12/22/22 09:35 Dose: 40 mg Benztropine Mesylate (Benztropine Mesylate 1 Mg Tablet) 1 mg PO BID [facility] Last Admin: 12/22/22 09:35 Dose: 1 mg Chlorpromazine HCl (Chlorpromazine Hcl 100 Mg Tablet) 500 mg PO BEDTIME [facility] Last Admin: 12/21/22 21:02 Dose: 500 mg Glipizide (Glipizide 10 Mg Tablet) 10 mg PO DAILY [facility] Last Admin: 12/22/22 09:35 Dose: 10 mg Lisinopril (Lisinopril 10 Mg Tablet) 10 mg PO DAILY [facility]; Protocol Last Admin: 12/22/22 09:35 Dose: 10 mg [place] Carbonate ([place] Carbonate Er 300 Mg Tablet.Er) 600 mg PO DAILY [facility] Last Admin: 12/22/22 09:35 Dose: 600 mg [place] Carbonate ([place] Carbonate Er 450 Mg Tablet.Er) 900 mg PO BEDTIME [facility] Last Admin: 12/21/22 21:04 Dose: 900 mg Lorazepam (Lorazepam 1 Mg Tablet) 1 mg PO BID@0900,1400 [facility] Last Admin: 12/22/22 09:35 Dose: 1 mg Lorazepam (Lorazepam 1 Mg Tablet) 1 mg PO DAILY PRN PRN Reason: anxiety/restlessness Last Admin: 12/19/22 09:45 Dose: 1 mg Lorazepam (Lorazepam 1 Mg Tablet) 2 mg PO BEDTIME [facility] Last Admin: 12/21/22 21:05 Dose: 2 mg Magnesium Hydroxide (Milk Of Magnesia 30 Ml Oral.Susp) 30 ml PO DAILY PRN PRN Reason: Constipation Last Admin: 12/21/22 21:02 Dose: 30 ml Metformin HCl (Metformin Hcl 1,000 Mg Tablet) 1,000 mg PO BIDWM [facility] Last Admin: 12/22/22 09:35 Dose: 1,000 mg Nicotine Polacrilex (Nicotine Polacrilex 2 Mg Gum) 4 mg BUCCAL Q2H PRN PRN Reason: Nicotine Cravings Prazosin HCl (Prazosin Hcl 1 Mg Capsule) 2 mg PO BEDTIME [facility]; Protocol Last Admin: 12/21/22 21:05 Dose: 2 mg Sitagliptin Phosphate (Sitagliptin Phosphate 25 Mg Tablet) 25 mg PO DAILY [facility] Last Admin: 12/22/22 09:35 Dose: 25 mg Trazodone HCl (Trazodone Hcl 50 Mg Tablet) 50 mg PO BEDTIME MRX1 PRN PRN Reason: Insomnia Allergies Allergies Allergy/AdvReac Type Severity Reaction Status Date / Time haloperidol [From Haldol] AdvReac Severe Irritable Verified 12/13/22 21:04 Assessment & Plan Assessment & Plan (1) Schizoaffective disorder: Status: Acute Code(s): F25.9 - Schizoaffective disorder, unspecified Plan Patient is a 42 year old male who self presented to [facility] d/t stating, his girlfriend wanting him to be evaluated , girlfriend does not physically exist; rather a perception of his reality. Per crisis report, Pt exhibiting acute psychotic behavior, reacting to visual stimuli. Pt accused clinician of sitting on his girlfriend during evaluation. Plan: 15 minute safety checks Continue home medications Obtain collateral 12/15: Pt continues to presents with rapid and pressured speech. It is difficult to understand or follow along with patients speech and thought process. He presents disorganized, tangential, delusional and incoherent; pt stated, my is waiting for me in my room while I meet with you ; starting to name all of his wives and husbands names, reports he plans on possibly having a baby with one of his husbands. Patient asked to retract 3 day notice because he feel we are skilled to handle ill people . Continue current tx plan. Labs to be drawn on Monday12/19/22. 12/16: pt observed responding to internal stimuli; when asked who he is talking to pt stated it was his , Gavino. He reports his , Gavino, is now here and Gisell-I has gone, since she is a part of [employer] . Patient reports he had a premonition that I was going to today but I'm glad I haven't . Denies SI/HI. Increased Thorazine to 100mg PO 0900,1700 and 200mg PO bedtime; pt aware. 12/17: Will increase Thorazine to 200 mg 3 times per day and Ativan 1 mg twice daily and 2 mg at bedtime. Will also increase prazosin to 2 mg as previously did well with that dose in the past. 12/18: adjust Thorazine to 200 mg morning and bedtime and 100 mg at dinnertime (pt agreed to take 100mg, rather than 200mg at that time) 12/19: Pt continues to present with rapid, pressured speech, disorganized thought process and delusional thought content; He reports visual hallucinations of his wives . Pt stated, I know my wives are invisible and you can't see them . T/W met with pt's mother today during her visit; mother stated that patient has improved since admission but is not at baseline yet. She reports he is much more organized and presents with less rapid speech. T/W left VM for patients PACT 3 team to obtain collateral; waiting for call back. Thorazine dose changed to 100mg PO @ 1500 and 400mg PO bedtime. 12/20: Pt presents with less rapid, pressured speech;more organized thought process. Pt stated he feels my speech isn't as fast and my thoughts are not racing as much . He is requesting for Thorazine 500mg PO bed scheduled at bedtime rather than divided between the afternoon and evening. Patient spoke about his invisible family ; pt stated, I have a family who can only be seen by me. They are not a danger to anyone nor am I . continue current tx plan. 12/21: Pt presents with less rapid, pressured speech;more organized thought process. Patient reports he is no longer having racing thoughts. He continues to talk about his invisible family; pt stated, I know it's odd to people that they can't see them ; patient has this delusion at baseline. T/W spoke with patient's mother, Margret Machado, who plans on talking with patient today and express if she feels patient is back to baseline. T/W left VM for patients PACT 3 team to obtain collateral; waiting for call back. 12/22: Pt presents normal speech, no longer accelerated;organized thought process. Patient stated, I'd like to go home. I came in manic and upset but I'm better now . He continues to talk about his invisible family; patient has this delusion at baseline. Pt stated, outside of my invisible family, I don't have auditory or visual hallucinations . T/W spoke with patient's mother, Margret Machado, who believes patient has returned to baseline. Plan to discharge patient home, either tomorrow or Monday. Patient educated on: diagnosis, medication risk/benefits and therapeutic strategies Informed Consent: understands Reason for continued inpatient stay Substantial Risk for: med/psych decompensation Time Spent With Patient Time: Total time managing care of this patient today _30___ minutes.
[2022-12-22 12:36] LABS: Glucose, Whole Blood 367 mg/dL (60-115)
--- NOTE | 2022-12-22 13:11 | PC.ADMIT ---
Patient POC at lunch 367. Tammy Navarro APRN notified. Continue to monitor.
[2022-12-22] MEDS: LORazepam 1 MG TABLET 2 MG PO (20:49)
[2022-12-22] MEDS: Prazosin HCL 1 MG CAPSULE 2 MG PO (20:50)
[2022-12-22] MEDS: Lithium Carbonate ER 450 MG TABLET.ER 900 MG PO (20:50)
[2022-12-22] MEDS: chlorproMAZINE HCl 100 MG TABLET 500 MG PO (20:50)
[2022-12-22 20:55] VITALS: BP 129/71; PULSE 93; RESP 18; TEMP 36.4; O2SAT 97
[2022-12-23 08:00] VITALS: BP 114/63; PULSE 85; RESP 18; TEMP 36.2; O2SAT 96
[2022-12-23 08:31] LABS: Glucose, Whole Blood 250 mg/dL (60-115)
[2022-12-23] MEDS: glipiZIDE 10 MG TABLET PO (08:31)
[2022-12-23] MEDS: SITagliptin Phosphate 25 MG TABLET PO (08:31)
[2022-12-23] MEDS: Lithium Carbonate ER 300 MG TABLET.ER 600 MG PO (08:31)
[2022-12-23] MEDS: metFORMIN HCl 1,000 MG TABLET 1000 MG PO ×2 (08:32→18:15)
[2022-12-23] MEDS: LORazepam 1 MG TABLET PO ×2 (08:32→14:19)
[2022-12-23] MEDS: Atorvastatin Calcium 40 MG TABLET PO (08:32)
[2022-12-23] MEDS: Benztropine Mesylate 1 MG TABLET PO ×2 (08:32→20:41)
[2022-12-23] MEDS: lisinopriL 10 MG TABLET PO (08:32)
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
[2022-12-23] MEDS: chlorproMAZINE HCl 100 MG TABLET 500 MG PO (20:41)
[2022-12-23] MEDS: Lithium Carbonate ER 450 MG TABLET.ER 900 MG PO (20:41)
[2022-12-23] MEDS: LORazepam 1 MG TABLET 2 MG PO (20:42)
[2022-12-23] MEDS: Prazosin HCL 1 MG CAPSULE 2 MG PO (20:48)
[2022-12-23 20:50] VITALS: BP 124/62; PULSE 92; RESP 18; TEMP 36.7; O2SAT 97
[2022-12-23 21:00] LABS: Glucose, Whole Blood 229 mg/dL (60-115)
[2022-12-24 08:00] VITALS: BP 121/69; PULSE 90; RESP 18; TEMP 36.4; O2SAT 97
[2022-12-24] MEDS: Atorvastatin Calcium 40 MG TABLET PO (08:49)
[2022-12-24] MEDS: lisinopriL 10 MG TABLET PO (08:49)
[2022-12-24] MEDS: Benztropine Mesylate 1 MG TABLET PO ×2 (08:49→21:06)
[2022-12-24] MEDS: SITagliptin Phosphate 25 MG TABLET PO (08:49)
[2022-12-24] MEDS: glipiZIDE 10 MG TABLET PO (08:49)
[2022-12-24] MEDS: Lithium Carbonate ER 300 MG TABLET.ER 600 MG PO (08:50)
[2022-12-24] MEDS: metFORMIN HCl 1,000 MG TABLET 1000 MG PO ×2 (08:55→17:26)
[2022-12-24 09:07] LABS: Glucose, Whole Blood 341 mg/dL (60-115)
[2022-12-24 09:07] LABS: Glucose, Whole Blood 482 mg/dL (60-115)
[2022-12-24] MEDS: LORazepam 1 MG TABLET PO ×2 (09:12→13:58)
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
[2022-12-24 21:04] VITALS: BP 118/56; PULSE 89; RESP 18; TEMP 36.6; O2SAT 96
[2022-12-24] MEDS: Lithium Carbonate ER 450 MG TABLET.ER 900 MG PO (21:05)
[2022-12-24] MEDS: LORazepam 1 MG TABLET 2 MG PO (21:05)
[2022-12-24] MEDS: chlorproMAZINE HCl 100 MG TABLET 500 MG PO (21:06)
[2022-12-24] MEDS: Prazosin HCL 1 MG CAPSULE 2 MG PO (21:06)
[2022-12-25 08:00] VITALS: BP 112/69; PULSE 91; RESP 16; TEMP 36.7; O2SAT 98
[2022-12-25] MEDS: Atorvastatin Calcium 40 MG TABLET PO (08:29)
[2022-12-25] MEDS: SITagliptin Phosphate 25 MG TABLET PO (08:29)
[2022-12-25] MEDS: lisinopriL 10 MG TABLET PO (08:30)
[2022-12-25] MEDS: glipiZIDE 10 MG TABLET PO (08:30)
[2022-12-25] MEDS: Benztropine Mesylate 1 MG TABLET PO ×2 (08:30→22:05)
[2022-12-25] MEDS: Lithium Carbonate ER 300 MG TABLET.ER 600 MG PO (08:30)
[2022-12-25] MEDS: LORazepam 1 MG TABLET PO ×2 (08:30→15:03)
[2022-12-25] MEDS: metFORMIN HCl 1,000 MG TABLET 1000 MG PO ×2 (08:30→17:27)
[2022-12-25 10:00] LABS: Glucose, Whole Blood 289 mg/dL (60-115)
--- NOTE | 2022-12-25 20:17 | HO.PSYCHPN ---
Subjective Subjective Date of Service: 12/25/22 Reason For Visit: Schizoaffective D/O Bipolar Subjective Notes: Conditional Voluntary Interim History: Pt reports he wants to go home to smoke and find my car. Pt reports his spouse waiting for him- there is no spose. He does not think he needs to be here and that his dx is incorrect. He states he has PTSD from hospitals. He continues to take medications. At times yells, other runs down the pink. disheveled and hair unkept. Review of Systems Review of Systems Unremarkable Yes all other systems are reviewed and are negative Constitutional: Reports as per HPI Eyes: Reports as per HPI Reports as per HPI Cardiovascular: Reports as per HPI Respiratory: Reports as per HPI Gastrointestinal: Reports as per HPI Genitourinary: Reports as per HPI Musculoskeletal: Reports as per HPI Skin/Breast: Reports as per HPI Reports as per HPI Psychiatric: Reports as per HPI Endocrine: Reports as per HPI Hematologic/Lymphatic: Reports as per HPI Allergic/Immunologic: Reports as per HPI Mental Status Exam Mental Status Exam Narrative: Pt is alert and oriented; behavior is cooperative and calm; dressed in casual attire with unkempt hair and poor hygiene; mood is described as good ; eye contact appropriate; Speech is normal rate, volume and prosody and not pressured; no psychomotor agitation/retardation present; thought process disorganized; Thought content is on discharge. denies SI/HI. Patients insight and judgment are poor x 2.. Diagnostics Vital Signs (24Hr): Vital Signs - 24 hr 12/24/22 21:04 12/25/22 08:00 Temperature 97.8 F 98.1 F Pulse Rate 89 91 Respiratory Rate 18 16 Blood Pressure 118/56 L 112/69 Pulse Oximetry 96 98 Oxygen Delivery Method Room Air Room Air Labs 12/19/22 07:31 Labs: Laboratory Results - last 48 hr 12/23/22 12/24/22 12/24/22 20:56 09:00 09:03 POC Glucose 229 H 482 H* 341 H 12/25/22 09:55 POC Glucose 289 H Medications Medications Current Medications Acetaminophen (Acetaminophen 325 Mg Tablet) 650 mg PO Q6H PRN PRN Reason: Headache/Pain Mild Scale (1-3) Al Hydroxide/Mg Hydroxide (Magnesium Hydrox/Alum Hydrox 30 Ml Oral.Susp) 30 ml PO Q6H PRN PRN Reason: Heartburn/Nausea Atorvastatin Calcium (Atorvastatin Calcium 40 Mg Tablet) 40 mg PO DAILY [facility] Last Admin: 12/25/22 08:29 Dose: 40 mg Benztropine Mesylate (Benztropine Mesylate 1 Mg Tablet) 1 mg PO BID [facility] Last Admin: 12/25/22 08:30 Dose: 1 mg Chlorpromazine HCl (Chlorpromazine Hcl 100 Mg Tablet) 500 mg PO BEDTIME [facility] Last Admin: 12/24/22 21:06 Dose: 500 mg Glipizide (Glipizide 10 Mg Tablet) 10 mg PO DAILY [facility] Last Admin: 12/25/22 08:30 Dose: 10 mg Lisinopril (Lisinopril 10 Mg Tablet) 10 mg PO DAILY [facility]; Protocol Last Admin: 12/25/22 08:30 Dose: 10 mg [place] Carbonate ([place] Carbonate Er 300 Mg Tablet.Er) 600 mg PO DAILY [facility] Last Admin: 12/25/22 08:30 Dose: 600 mg [place] Carbonate ([place] Carbonate Er 450 Mg Tablet.Er) 900 mg PO BEDTIME [facility] Last Admin: 12/24/22 21:05 Dose: 900 mg Lorazepam (Lorazepam 1 Mg Tablet) 2 mg PO BEDTIME [facility] Last Admin: 12/24/22 21:05 Dose: 2 mg Lorazepam (Lorazepam 1 Mg Tablet) 1 mg PO DAILY@0900,1400 [facility] Last Admin: 12/25/22 15:03 Dose: 1 mg Magnesium Hydroxide (Milk Of Magnesia 30 Ml Oral.Susp) 30 ml PO DAILY PRN PRN Reason: Constipation Last Admin: 12/21/22 21:02 Dose: 30 ml Metformin HCl (Metformin Hcl 1,000 Mg Tablet) 1,000 mg PO BIDWM [facility] Last Admin: 12/25/22 17:27 Dose: 1,000 mg Nicotine Polacrilex (Nicotine Polacrilex 2 Mg Gum) 4 mg BUCCAL Q2H PRN PRN Reason: Nicotine Cravings Prazosin HCl (Prazosin Hcl 1 Mg Capsule) 2 mg PO BEDTIME [facility]; Protocol Last Admin: 12/24/22 21:06 Dose: 2 mg Sitagliptin Phosphate (Sitagliptin Phosphate 25 Mg Tablet) 25 mg PO DAILY [facility] Last Admin: 12/25/22 08:29 Dose: 25 mg Trazodone HCl (Trazodone Hcl 50 Mg Tablet) 50 mg PO BEDTIME [facility] PRN PRN Reason: Insomnia Allergies Allergies Allergy/AdvReac Type Severity Reaction Status Date / Time haloperidol [From Haldol] AdvReac Severe Irritable Verified 12/13/22 21:04 Assessment & Plan Assessment & Plan (1) Schizoaffective disorder: Status: Acute Code(s): F25.9 - Schizoaffective disorder, unspecified Plan Patient is a 42 year old male who self presented to [facility] d/t stating, his girlfriend wanting him to be evaluated , girlfriend does not physically exist; rather a perception of his reality. Per crisis report, Pt exhibiting acute psychotic behavior, reacting to visual stimuli. Pt accused clinician of sitting on his girlfriend during evaluation. Plan: 15 minute safety checks Continue home medications Obtain collateral 12/15: Pt continues to presents with rapid and pressured speech. It is difficult to understand or follow along with patients speech and thought process. He presents disorganized, tangential, delusional and incoherent; pt stated, my is waiting for me in my room while I meet with you ; starting to name all of his wives and husbands names, reports he plans on possibly having a baby with one of his husbands. Patient asked to retract 3 day notice because he feel we are skilled to handle ill people . Continue current tx plan. Labs to be drawn on Monday12/19/22. 12/16: pt observed responding to internal stimuli; when asked who he is talking to pt stated it was his , Gavino. He reports his , Gavino, is now here and Gisell-I has gone, since she is a part of [employer] . Patient reports he had a premonition that I was going to today but I'm glad I haven't . Denies SI/HI. Increased Thorazine to 100mg PO 0900,1700 and 200mg PO bedtime; pt aware. 12/17: Will increase Thorazine to 200 mg 3 times per day and Ativan 1 mg twice daily and 2 mg at bedtime. Will also increase prazosin to 2 mg as previously did well with that dose in the past. 12/18: adjust Thorazine to 200 mg morning and bedtime and 100 mg at dinnertime (pt agreed to take 100mg, rather than 200mg at that time) 12/19: Pt continues to present with rapid, pressured speech, disorganized thought process and delusional thought content; He reports visual hallucinations of his wives . Pt stated, I know my wives are invisible and you can't see them . T/W met with pt's mother today during her visit; mother stated that patient has improved since admission but is not at baseline yet. She reports he is much more organized and presents with less rapid speech. T/W left VM for patients PACT 3 team to obtain collateral; waiting for call back. Thorazine dose changed to 100mg PO @ 1500 and 400mg PO bedtime. 12/20: Pt presents with less rapid, pressured speech;more organized thought process. Pt stated he feels my speech isn't as fast and my thoughts are not racing as much . He is requesting for Thorazine 500mg PO bed scheduled at bedtime rather than divided between the afternoon and evening. Patient spoke about his invisible family ; pt stated, I have a family who can only be seen by me. They are not a danger to anyone nor am I . continue current tx plan. 12/21: Pt presents with less rapid, pressured speech;more organized thought process. Patient reports he is no longer having racing thoughts. He continues to talk about his invisible family; pt stated, I know it's odd to people that they can't see them ; patient has this delusion at baseline. T/W spoke with patient's mother, Margret Machado, who plans on talking with patient today and express if she feels patient is back to baseline. T/W left VM for patients PACT 3 team to obtain collateral; waiting for call back. 12/22: Pt presents normal speech, no longer accelerated;organized thought process. Patient stated, I'd like to go home. I came in manic and upset but I'm better now . He continues to talk about his invisible family; patient has this delusion at baseline. Pt stated, outside of my invisible family, I don't have auditory or visual hallucinations . T/W spoke with patient's mother, Margret Machado, who believes patient has returned to baseline. Plan to discharge patient home, either tomorrow or Monday. 12/23 continue tx. 12/24 continue tx. dc Monday Reason for continued inpatient stay Substantial Risk for: inability to function Time Spent With Patient Time: Total time managing care of this patient today ____ minutes.
[2022-12-25 21:59] LABS: Glucose, Whole Blood 209 mg/dL (60-115)
[2022-12-25 22:00] VITALS: BP 143/65; PULSE 98; RESP 16; TEMP 36.8; O2SAT 97
[2022-12-25] MEDS: chlorproMAZINE HCl 100 MG TABLET 500 MG PO (22:02)
[2022-12-25] MEDS: Lithium Carbonate ER 450 MG TABLET.ER 900 MG PO (22:04)
[2022-12-25] MEDS: LORazepam 1 MG TABLET 2 MG PO (22:04)
[2022-12-25] MEDS: Prazosin HCL 1 MG CAPSULE 2 MG PO (22:05)
[2022-12-26 08:00] VITALS: BP 127/70; PULSE 82; RESP 18; TEMP 36.2; O2SAT 99
[2022-12-26] MEDS: metFORMIN HCl 1,000 MG TABLET 1000 MG PO ×2 (08:16→16:51)
[2022-12-26] MEDS: Atorvastatin Calcium 40 MG TABLET PO (08:16)
[2022-12-26] MEDS: glipiZIDE 10 MG TABLET PO (08:17)
[2022-12-26] MEDS: lisinopriL 10 MG TABLET PO (08:17)
[2022-12-26] MEDS: Benztropine Mesylate 1 MG TABLET PO ×2 (08:17→21:05)
[2022-12-26] MEDS: SITagliptin Phosphate 25 MG TABLET PO (08:17)
[2022-12-26] MEDS: LORazepam 1 MG TABLET PO ×2 (08:18→13:35)
[2022-12-26] MEDS: Lithium Carbonate ER 300 MG TABLET.ER 600 MG PO (08:18)
[2022-12-26 08:23] LABS: Glucose, Whole Blood 221 mg/dL (60-115)
[2022-12-26 09:27] LABS: Estimated Glomerular Filt Rate > 60
--- NOTE | 2022-12-26 12:54 | P.PNPSI_ITS ---
Subjective Subjective Date of Service: 12/26/22 Reason For Visit: Schizoaffective D/O Bipolar Subjective Notes: Conditional Voluntary Interim History: Reviewed in team and Dr. Whittaker. Patient reports feeling good today. Pt presents with normal speech and organized. Patient stated, I feel ready to go home and I will take my meds faithfully. I also have a team who checks on me . aged or disabled care worker to call PACT team to inform them of patients readiness to return home. Pt denies SI/HI; reports he does not have any visual and auditory hallucinations other than his invisible family . T/W spoke with patients mother, Margret Machado, to inform her of her sons discharge tomorrow and answer any questions she may have. Medication Compliance: Yes Side effects from medications: No Attending Groups: No Review of Systems Constitutional: Reports as per HPI Eyes: Reports as per HPI Reports as per HPI Cardiovascular: Reports as per HPI Respiratory: Reports as per HPI Gastrointestinal: Reports as per HPI Genitourinary: Reports as per HPI Musculoskeletal: Reports as per HPI Skin/Breast: Reports as per HPI Reports as per HPI Psychiatric: Reports as per HPI Endocrine: Reports as per HPI Hematologic/Lymphatic: Reports as per HPI Allergic/Immunologic: Reports as per HPI Mental Status Exam Mental Status Exam Narrative: Pt is alert and oriented; behavior is cooperative, friendly and calm; dressed in casual attire with unkempt hair and poor hygiene; mood is described as good ; eye contact appropriate; Speech is normal rate, volume and prosody and not pressured; no psychomotor agitation/retardation present; thought process is organized and goal directed; Thought content is on discharge; reports having an invisible family ; which is considered baseline for pt, per mother and PACT team; denies any SI/HI. Patients insight and judgment are fair. Diagnostics Vital Signs (24Hr): Vital Signs - 24 hr 12/25/22 22:00 12/26/22 08:00 Temperature 98.2 F 97.1 F Pulse Rate 98 82 Respiratory Rate 16 18 Blood Pressure 143/65 H 127/70 Pulse Oximetry 97 99 Oxygen Delivery Method Room Air Room Air Labs 12/26/22 13:13 Labs: Laboratory Results - last 48 hr 12/25/22 12/25/22 12/26/22 09:55 21:54 08:17 Creatinine Estim Creat Clear Calc Estimated GFR POC Glucose 289 H 209 H 221 H 12/26/22 08:59 Creatinine 0.76 Estim Creat Clear Calc TNP Estimated GFR > 60 POC Glucose Medications Medications Current Medications Acetaminophen (Acetaminophen 325 Mg Tablet) 650 mg PO Q6H PRN PRN Reason: Headache/Pain Mild Scale (1-3) Al Hydroxide/Mg Hydroxide (Magnesium Hydrox/Alum Hydrox 30 Ml Oral.Susp) 30 ml PO Q6H PRN PRN Reason: Heartburn/Nausea Atorvastatin Calcium (Atorvastatin Calcium 40 Mg Tablet) 40 mg PO DAILY [facility] Last Admin: 12/26/22 08:16 Dose: 40 mg Benztropine Mesylate (Benztropine Mesylate 1 Mg Tablet) 1 mg PO BID [facility] Last Admin: 12/26/22 08:17 Dose: 1 mg Chlorpromazine HCl (Chlorpromazine Hcl 100 Mg Tablet) 500 mg PO BEDTIME [facility] Last Admin: 12/25/22 22:02 Dose: 500 mg Glipizide (Glipizide 10 Mg Tablet) 10 mg PO DAILY [facility] Last Admin: 12/26/22 08:17 Dose: 10 mg Lisinopril (Lisinopril 10 Mg Tablet) 10 mg PO DAILY [facility]; Protocol Last Admin: 12/26/22 08:17 Dose: 10 mg [place] Carbonate ([place] Carbonate Er 300 Mg Tablet.Er) 600 mg PO DAILY [facility] Last Admin: 12/26/22 08:18 Dose: 600 mg [place] Carbonate ([place] Carbonate Er 450 Mg Tablet.Er) 900 mg PO BEDTIME [facility] Last Admin: 12/25/22 22:04 Dose: 900 mg Lorazepam (Lorazepam 1 Mg Tablet) 2 mg PO BEDTIME [facility] Last Admin: 12/25/22 22:04 Dose: 2 mg Lorazepam (Lorazepam 1 Mg Tablet) 1 mg PO DAILY@0900,1400 [facility] Last Admin: 12/26/22 08:18 Dose: 1 mg Magnesium Hydroxide (Milk Of Magnesia 30 Ml Oral.Susp) 30 ml PO DAILY PRN PRN Reason: Constipation Last Admin: 12/21/22 21:02 Dose: 30 ml Metformin HCl (Metformin Hcl 1,000 Mg Tablet) 1,000 mg PO BIDWM [facility] Last Admin: 12/26/22 08:16 Dose: 1,000 mg Nicotine Polacrilex (Nicotine Polacrilex 2 Mg Gum) 4 mg BUCCAL Q2H PRN PRN Reason: Nicotine Cravings Prazosin HCl (Prazosin Hcl 1 Mg Capsule) 2 mg PO BEDTIME [facility]; Protocol Last Admin: 12/25/22 22:05 Dose: 2 mg Sitagliptin Phosphate (Sitagliptin Phosphate 25 Mg Tablet) 25 mg PO DAILY [facility] Last Admin: 12/26/22 08:17 Dose: 25 mg Allergies Allergies Allergy/AdvReac Type Severity Reaction Status Date / Time haloperidol [From Haldol] AdvReac Severe Irritable Verified 12/13/22 21:04 Assessment & Plan Assessment & Plan (1) Schizoaffective disorder: Status: Acute Code(s): F25.9 - Schizoaffective disorder, unspecified Plan Patient is a 42 year old male who self presented to [facility] d/t stating, his girlfriend wanting him to be evaluated , girlfriend does not physically exist; rather a perception of his reality. Per crisis report, Pt exhibiting acute psychotic behavior, reacting to visual stimuli. Pt accused clinician of sitting on his girlfriend during evaluation. Plan: 15 minute safety checks Continue home medications Obtain collateral 12/15: Pt continues to presents with rapid and pressured speech. It is difficult to understand or follow along with patients speech and thought process. He presents disorganized, tangential, delusional and incoherent; pt stated, my is waiting for me in my room while I meet with you ; starting to name all of his wives and husbands names, reports he plans on possibly having a baby with one of his husbands. Patient asked to retract 3 day notice because he feel we are skilled to handle ill people . Continue current tx plan. Labs to be drawn on Monday12/19/22. 12/16: pt observed responding to internal stimuli; when asked who he is talking to pt stated it was his , Gavino. He reports his , Gavino, is now here and Gisell-I has gone, since she is a part of [employer] . Patient reports he had a premonition that I was going to today but I'm glad I haven't . Denies SI/HI. Increased Thorazine to 100mg PO 0900,1700 and 200mg PO bedtime; pt aware. 12/17: Will increase Thorazine to 200 mg 3 times per day and Ativan 1 mg twice daily and 2 mg at bedtime. Will also increase prazosin to 2 mg as previously did well with that dose in the past. 12/18: adjust Thorazine to 200 mg morning and bedtime and 100 mg at dinnertime (pt agreed to take 100mg, rather than 200mg at that time) 12/19: Pt continues to present with rapid, pressured speech, disorganized thought process and delusional thought content; He reports visual hallucinations of his wives . Pt stated, I know my wives are invisible and you can't see them . T/W met with pt's mother today during her visit; mother stated that patient has improved since admission but is not at baseline yet. She reports he is much more organized and presents with less rapid speech. T/W left VM for patients PACT 3 team to obtain collateral; waiting for call back. Thorazine dose changed to 100mg PO @ 1500 and 400mg PO bedtime. 12/20: Pt presents with less rapid, pressured speech;more organized thought process. Pt stated he feels my speech isn't as fast and my thoughts are not racing as much . He is requesting for Thorazine 500mg PO bed scheduled at bedtime rather than divided between the afternoon and evening. Patient spoke about his invisible family ; pt stated, I have a family who can only be seen by me. They are not a danger to anyone nor am I . continue current tx plan. 12/21: Pt presents with less rapid, pressured speech;more organized thought process. Patient reports he is no longer having racing thoughts. He continues to talk about his invisible family; pt stated, I know it's odd to people that they can't see them ; patient has this delusion at baseline. T/W spoke with patient's mother, Margret Machado, who plans on talking with patient today and express if she feels patient is back to baseline. T/W left VM for patients PACT 3 team to obtain collateral; waiting for call back. 12/22: Pt presents normal speech, no longer accelerated;organized thought process. Patient stated, I'd like to go home. I came in manic and upset but I'm better now . He continues to talk about his invisible family; patient has this delusion at baseline. Pt stated, outside of my invisible family, I don't have auditory or visual hallucinations . T/W spoke with patient's mother, Margret Machado, who believes patient has returned to baseline. Plan to discharge patient home, either tomorrow or Monday. 12/23 continue tx. 12/24 continue tx. dc Tuesday 12/26: Patient reports feeling good today. Pt presents with normal speech and organized. Patient stated, I feel ready to go home and I will take my meds faithfully. I also have a team who checks on me . aged or disabled care worker to call PACT team to inform them of patients readiness to return home. Pt denies SI/HI; reports he does not have any visual and auditory hallucinations other than his invisible family . T/W spoke with patient mother, Margret Machado, and informed her of patients discharge tomorrow. Patient educated on: diagnosis, medication risk/benefits and therapeutic strategies Informed Consent: understands Reason for continued inpatient stay Substantial Risk for: med/psych decompensation Time Spent With Patient Time: Total time managing care of this patient today _30___ minutes.
[2022-12-26 14:18] LABS: Lithium 0.89 mmol/L (0.60-1.20)
[2022-12-26 14:35] LABS: Anion Gap 11 (12-20); Blood Urea Nitrogen 12 mg/dL (9-16); Carbon Dioxide 24 mmol/L (22-29); Chloride 105 mmol/L (96-108); Estimated Glomerular Filt Rate > 60; Potassium 4.2 mmol/L (3.3-5.1); Sodium 136 mmol/L (135-145)
[2022-12-26 15:05] LABS: TSH reflex Free T4 1.75 uIU/mL (0.32-4.0)
[2022-12-26 20:44] VITALS: BP 104/55; PULSE 97; RESP 97; TEMP 36.1; O2SAT 97
[2022-12-26 21:00] LABS: Glucose, Whole Blood 248 mg/dL (60-115)
[2022-12-26] MEDS: chlorproMAZINE HCl 100 MG TABLET 500 MG PO (21:02)
[2022-12-26] MEDS: Prazosin HCL 1 MG CAPSULE 2 MG PO (21:03)
[2022-12-26] MEDS: LORazepam 1 MG TABLET 2 MG PO (21:04)
[2022-12-26] MEDS: Lithium Carbonate ER 450 MG TABLET.ER 900 MG PO (21:05)
[2022-12-26 21:12] VITALS: BP 132/62; PULSE 86
[2022-12-27 06:00] VITALS: BP 117/68; PULSE 79; RESP 18; TEMP 36.6; O2SAT 97
[2022-12-27 08:36] LABS: Glucose, Whole Blood 213 mg/dL (60-115)
--- NOTE | 2022-12-27 08:56 | P.DS_ITS ---
DS: Providers Provider Date of Service: 12/27/22 Date of admission: 12/13/22 18:31 Date of discharge: 12/27/22 Primary care physician: Unknown Physician Admitting clinician: Tammy Navarro Attending physician on admission: Josh Whittaker Consults: 12/13/22 22:44 Consult to Hospitalist Routine Comment: Consulting Provider: Hospitalist Reason For Exam: OSH admission Attending physician on discharge: Josh Whittaker Discharging clinician: Tammy Navarro DS: Diagnosis Discharge Diagnosis (1) Schizoaffective disorder: Status: Acute DS: Medications Discharge Medications Home Medications: Home Medications Medication Instructions Recorded Confirmed fluphenazine decanoate 25 mg/mL 25 mg IM 12/13/22 injection solution Previous Rx's Medication Instructions Recorded atorvastatin 40 mg tablet 40 mg PO DAILY 30 days #30 tabs 12/27/22 benztropine 1 mg tablet 1 mg PO BID 30 days #60 tabs 12/27/22 chlorpromazine 100 mg tablet 500 mg (5 x 100 mg) PO BEDTIME 30 12/27/22 days #150 tabs glipizide 10 mg tablet 10 mg PO DAILY 30 days #30 tabs 12/27/22 lisinopril 10 mg tablet 10 mg PO DAILY 30 days #30 tabs 12/27/22 lithium carbonate 300 mg 600 mg (2 x 300 mg) PO DAILY 30 12/27/22 tablet,extended release days #60 tabs lithium carbonate 450 mg 900 mg (2 x 450 mg) PO BEDTIME 30 12/27/22 tablet,extended release days #60 tabs lorazepam 1 mg tablet 2 mg (2 x 1 mg) PO BEDTIME 30 days 12/27/22 #60 tabs metformin 1,000 mg tablet 1,000 mg PO BIDWM 30 days #60 tabs 12/27/22 prazosin 1 mg capsule 2 mg PO BEDTIME 30 days #60 caps 12/27/22 sitagliptin phosphate 25 mg tablet 25 mg PO DAILY 30 days #30 tabs 12/27/22 (Januvia) Mental Status Exam Mental Status Exam Narrative: Pt is alert and oriented; behavior is cooperative, friendly and calm; dressed in casual attire; mood is described as good ; eye contact appropriate; Speech is normal rate, volume and prosody and not pressured; no psychomotor agitation/retardation present; thought process is organized and goal directed; Thought content is on tx; pt continues to present with delusions of having an invisible family which is baseline for him; denies SI/HI. Patients insight and judgment are fair. Data Data Completed and Pending Completed studies during hospitalization [Text1]: 12/20/22 12/21/22 12/21/22 22:04 12:41 20:56 Sodium Potassium Chloride Carbon Dioxide Anion Gap BUN Creatinine Estim Creat Clear Calc Estimated GFR POC Glucose 301 H 335 H 375 H* TSH [place] 12/22/22 12/23/22 12/23/22 12:32 08:20 20:56 Sodium Potassium Chloride Carbon Dioxide Anion Gap BUN Creatinine Estim Creat Clear Calc Estimated GFR POC Glucose 367 H* 250 H 229 H TSH [place] 12/24/22 12/24/22 12/25/22 09:00 09:03 09:55 Sodium Potassium Chloride Carbon Dioxide Anion Gap BUN Creatinine Estim Creat Clear Calc Estimated GFR POC Glucose 482 H* 341 H 289 H TSH [place] 12/25/22 12/26/22 12/26/22 21:54 08:17 08:59 Sodium Potassium Chloride Carbon Dioxide Anion Gap BUN Creatinine 0.76 Estim Creat Clear Calc TNP Estimated GFR > 60 POC Glucose 209 H 221 H TSH [place] 12/26/22 12/26/22 12/27/22 13:13 20:55 08:30 Sodium 136 Potassium 4.2 Chloride 105 Carbon Dioxide 24 Anion Gap 11 L BUN 12 Creatinine 0.76 Estim Creat Clear Calc TNP Estimated GFR > 60 POC Glucose 248 H 213 H TSH 1.75 [place] 0.89 DS: Summary Hospital Course Hospital Course: Patient is a 42 year old male who self presented to [facility] d/t stating, his girlfriend wanting him to be evaluated , girlfriend does not physically exist; rather a perception of his reality. Per crisis report, Pt exhibiting acute psychotic behavior, reacting to visual stimuli. Pt accused clinician of sitting on his girlfriend during evaluation. During admission assessment, pt presents with rapid and pressured speech. It is difficult to understand or follow along with patients speech and thought process. When asked if patient can slow his speech; he is able to for a brief period before returning to rapid and pressured speech. Pt states he wants to be section 35'd for his tobacco use. He presents disorganized, tangential, delusional and incoherent; reports he is to 4 women and 2 men. Pt reports he has cameras in my occipital nerve broadcasting to everyone everything that is happening . He reports being medication compliant and has a visiting nurse who sees him daily. Pt denies VH/AH but introduced T/W to one of his wives, Danny, who he believed was standing next to him, however no one was in the room but the patient and T/W. Patient reports he is only in the hospital to be section 35'd for tobacco use . He denies SI/HI. [place] level .53 on 12/14/2022. During hospital course, Pt presents with rapid and pressured speech. It is difficult to understand or follow along with patients speech and thought process. He presents disorganized, tangential, delusional and incoherent; pt stated, my is waiting for me in my room while I meet with you ; starting t o name all of his wives and husbands names, reports he plans on possibly having a baby with one of his husbands. Patient asked to retract 3 day notice because he feel we are skilled to handle ill people . Pt observed responding to internal stimuli; when asked who he is talking to pt stated it was his , Gavino. He reports his , Gavino, is now here and Danny has gone, since she is a part of [employer] . Patient reports he had a premonition that I was going to today but I'm glad I haven't . Denies SI/HI. Increased Thorazine to 100mg PO 0900,1700 and 200mg PO bedtime; pt aware. Will increase Thorazine to 200 mg 3 times per day and Ativan 1 mg twice daily and 2 mg at bedtime. Will also increase prazosin to 2 mg as previously did well with that dose in the past. Adjust Thorazine to 200 mg morning and bedtime and 100 mg at dinnertime (pt agreed to take 100mg, rather than 200mg at that time). Pt continues to present with rapid, pressured speech, disorganized thought process and delusional thought content; He reports visual hallucinations of his wives . Pt stated, I know my wives are invisible and you can't see them . T/W met with pt's mother today during her visit; mother stated that patient has improved since admission but is not at baseline yet. She reports he is much more organized and presents with less rapid speech. T/W left for patients PACT 3 team to obtain collateral; waiting for call back. Thorazine dose changed to 100mg PO @ 1500 and 400mg PO bedtime. Pt presents with less rapid, pressured speech;more organized thought process. Pt stated he feels my speech isn't as fast and my thoughts are not racing as much . He is requesting for Thorazine 500mg PO bed scheduled at bedtime rather than divided between the afternoon and evening. Patient spoke about his invisible family ; pt stated, I have a family who can only be seen by me. They are not a danger to anyone nor am I . Patient reports he is no longer having racing thoughts. He continues to talk about his invisible family; pt stated, I know it's odd to people that they can't see them ; patient has this delusion at baseline. T/W spoke with patient's mother, Margret Machado, who plans on talking with patient today and express if she feels patient is back to baseline. Pt presents normal speech, no longer accelerated;organized thought process. Patient stated, I'd like to go home. I came in manic and upset but I'm better now . He continues to talk about his invisible family; patient has this delusion at baseline. Pt stated, outside of my invisible family, I don't have auditory or visual hallucinations . T/W spoke with patient's mother, Margret Machado, who believes patient has returned to baseline. Patient reports feeling good today. Patient stated, I feel ready to go home and I will take my meds faithfully. I also have a team who checks on me . fiber glass worker to call PACT team to inform them of patients readiness to return home. Pt denies SI/HI; reports he does not have any visual and auditory hallucinations other than his invisible family . T/W spoke with patient mother, Margret Machado, and informed her of patients discharge. Time spent discussing smoking cessation with patient: 3 to 10 minutes Status at Discharge Cognitive/behavioral status at discharge: Patient was interviewed prior to discharge and found to be fully oriented and without any SI or HI. Patient has insight and demonstrates good judgment in terms of wanting to pursue treatment. Patient is not in imminent risk of harm to self or others and has a safety plan that includes presenting to the closest ER or calling 911 if feeling unsafe. Patient has been observed closely by nursing and unit staff throughout admission; patient has not engaged in any behaviors that suggest dangerousness to self or others and has demonstrated appropriate behaviors and impulse control. Functional status at discharge: independent ambulation Overall status at discharge: patient is back to baseline Time Spent with Patient Time attestation: Total time managing care of this patient today _30___ minutes. Time spent: Less than 30 minutes Discharge Plan Discharge Anticipated Discharge Date/Time: 12/27/22 11:00 Patient Disposition: Home, Self-Care Discharge Diagnosis: Schizoaffective d/o Referrals: Dr. Taylor- [facility] [Other] - 01/13/23 12:00 pm (In person ) [facility] [Provider Group] - 01/06/23 10:15 am ([facility] - [address] [place] [address] Appt. confirmed for 01/06/23 @ 10:15am) Discharge Medications: New prazosin 1 mg Capsule 2 mg PO BEDTIME 30 Days Qty: 60 0RF Protocol: Hold for SBP< HOLD for SBP < : 90 benztropine 1 mg Tablet 1 mg PO BID 30 Days Qty: 60 0RF chlorpromazine 100 mg Tablet 500 mg PO BEDTIME 30 Days Qty: 150 0RF glipizide 10 mg Tablet 10 mg PO DAILY 30 Days Qty: 30 0RF metformin 1,000 mg Tablet 1,000 mg PO BIDWM 30 Days Qty: 60 0RF lithium carbonate 300 mg Tablet Extended Release 600 mg PO DAILY 30 Days Qty: 60 0RF lithium carbonate 450 mg Tablet Extended Release 900 mg PO BEDTIME 30 Days Qty: 60 0RF lorazepam 1 mg Tablet 2 mg PO BEDTIME 30 Days Qty: 60 0RF Continued atorvastatin 40 mg tablet 40 mg PO DAILY 30 Days Qty: 30 0RF lisinopril 10 mg tablet 10 mg PO DAILY 30 Days Qty: 30 0RF Januvia 25 mg tablet 25 mg PO DAILY 30 Days Qty: 30 0RF Changed fluphenazine decanoate 25 mg/mL solution 37.5 mg IM Q2W Qty: 5 0RF Rx Instructions: Next dose due 12/30/2022 Discontinued benztropine 1 mg tablet 1 mg PO DAILY chlorpromazine 200 mg tablet 400 PO prazosin 1 mg capsule 1 mg PO BEDTIME lithium carbonate 300 mg tablet extended release 300 mg PO BID lithium carbonate 450 mg tablet extended release 450 mg PO BID Discharge Orders: Discharge Order (Routine); Ordered 12/27/22 Ordered By: Tammy Navarro Diet: Diabetic diet Activity on Discharge: As tolerated Stand Alone Forms: Patient Portal Discharge page, Community Support Care Plan Goals: Maintain mood and safe behaviors Take medications as prescribed Practice coping skills Continue with outpatient providers and reach out to them as needed Health Concerns: Mood stability and behaviors Monitor blood sugars Plan of Treatment: Follow up with your PCP, psychiatric provider and other outpatient providers regarding above concerns Take medications as prescribed Assessment: Patient was interviewed prior to discharge and found to be fully oriented and without any SI or HI. Patient has insight and demonstrates good judgment in terms of wanting to pursue treatment. Patient is not in imminent risk of harm to self or others and has a safety plan that includes presenting to the closest ER or calling 911 if feeling unsafe. Patient has been observed closely by nursing and unit staff throughout admission; patient has not engaged in any behaviors that suggest dangerousness to self or others and has demonstrated appropriate behaviors and impulse contro.l Discharge Date/Time: 12/27/22 11:03
[2022-12-27] MEDS: glipiZIDE 10 MG TABLET PO (08:57)
[2022-12-27] MEDS: metFORMIN HCl 1,000 MG TABLET 1000 MG PO (08:57)
[2022-12-27] MEDS: SITagliptin Phosphate 25 MG TABLET PO (08:57)
[2022-12-27] MEDS: Benztropine Mesylate 1 MG TABLET PO (08:58)
[2022-12-27] MEDS: Atorvastatin Calcium 40 MG TABLET PO (08:58)
[2022-12-27] MEDS: Lithium Carbonate ER 300 MG TABLET.ER 600 MG PO (08:58)
[2022-12-27] MEDS: lisinopriL 10 MG TABLET PO (08:58)
[2022-12-27] MEDS: LORazepam 1 MG TABLET PO (09:02)
--- NOTE | 2022-12-27 11:17 | PC.NURSE ---
Tessy is alert, pleasant and cooperative with discharge process. He denies ideation, plan or intent to harm self or others and denies physical complaint.
== END 2022-12-27 11:03 | disposition home or self-care (01) | DRG 885 ==
PROVIDERS: Admitting Provider Psychiatry & Neurology Psychiatry; Responsible Provider Registered Nurse; Visit Provider Psychiatry & Neurology Psychiatry
DX: F25.9 Schizoaffective disorder, unspecified (principal); I10 Essential (primary) hypertension; E11.9 Type 2 diabetes mellitus without complications; E78.2 Mixed hyperlipidemia; D72.829 Elevated white blood cell count, unspecified; F17.210 Nicotine dependence, cigarettes, uncomplicated; Z71.6 Tobacco abuse counseling; Z79.84 Long term (current) use of oral hypoglycemic drugs; Z79.899 Other long term (current) drug therapy
CPT/HCPCS: 36415; 80051; 80053; 80061; 80178; 82565; 82607; 82746; 82947; 83036; 84300; 84439; 84443; 84520; J2680

== ENCOUNTER → 2022-12-13 18:31 | Outpatient (BNV) | payer MEDICARE, MEDICAID, SELFPAY | PROVIDERS: Admitting Provider Psychiatry & Neurology Psychiatry; Responsible Provider Registered Nurse; Visit Provider Registered Nurse | DX: F25.0 Schizoaffective disorder, bipolar type (principal) | CPT/HCPCS: 90792; 99231; 99232; 99238 ==

== ENCOUNTER → 2022-12-13 18:31 | Outpatient (BNV) | payer MEDICARE, OTHER, SELFPAY | PROVIDERS: Admitting Provider Psychiatry & Neurology Psychiatry; Responsible Provider Registered Nurse; Visit Provider Student in an Organized Health Care Education/Training Program | DX: Z02.2 Encounter for examination for admission to residential institution (principal) | CPT/HCPCS: 99429 ==

== ENCOUNTER → 2022-12-13 18:31 | Outpatient (BNV) | payer MEDICARE, MEDICAID, SELFPAY | PROVIDERS: Admitting Provider Psychiatry & Neurology Psychiatry; Responsible Provider Registered Nurse; Visit Provider Psychiatry & Neurology Psychiatry | DX: F25.0 Schizoaffective disorder, bipolar type (principal) | CPT/HCPCS: 99232 ==